=== PATIENT | female | born 1955 | race Caucasian/White ===

== ENCOUNTER 2017-12-23 11:22 | Emergency (ER) | payer MEDICARE, OTHER ==
[~2017-12-23] VITALS: Ht 162.6 cm; Wt 126.1 kg
--- OUTSIDE RECORDS SUMMARY | 2017-12-23 11:27 | XMS REPORT ---
Author Author TARA VAZQUEZ [facility] [place] eClinicalWorks Address Unknown Phone Unavailable Care Team Providers Care Fruit Loader Machine Operator Name Role Phone TARA VAZQUEZ CP Unavailable Allergies, Adverse Reactions, Alerts Substance Reaction Event Type N.K.D.A. Info Not Available Non Drug Allergy Problems Problem Type Condition Code Onset Dates Condition Status Problem Pedal edema R60.0 Active Problem Right leg pain M79.604 Active Problem HTN (hypertension) I10 Active Assessment Right leg pain M79.604 Active Assessment HTN (hypertension) I10 Active Assessment Pedal edema R60.0 Active Medications Medication Code System Code Instructions Start Date End Date Status Dosage Potassium Chloride ER [facility] [address]-08 10 MEQ Orally Once a day Sep 18, 2015 Oct 18, 2015 1 tablet Norvasc [facility] [address]-25 10 MG Orally Once a day Sep 18, 2015 1 tablet Walker NDC 0 1 rolling walker daily Aug 23, 2015 as directed Lisinopril-Hydrochlorothiazide [facility] [address]-96 20-25 MG Orally Once a day Aug 23, 2015 1 tablet Lasix [facility] [address]-86 20 MG Orally Once a day prn swelling Sep 18, 2015 1 tablet Cane NDC 0 1 cane use daily Aug 23, 2015 as directed Procedures Procedure Coding System Code Date COMPREHEN METABOLIC PANEL CPT-4 30151 Sep 18, 2015 URINALYSIS, AUTO, W/O SCOPE CPT-4 07102 Sep 18, 2015 COMPLETE CBC W/AUTO DIFF WBC CPT-4 97272 Sep 18, 2015 Office Visit, Est Pt., Level 4 CPT-4 76935 Sep 18, 2015 CHEST X-RAY CPT-4 60185 Sep 18, 2015 VENIPUNCT, ROUTINE* CPT-4 99934 Sep 18, 2015 Vital Signs Date/Time: Sep 18, 2015 Temperature 98.0 F Weight 289 lbs Height 64.0 in BMI 49.60 Index Blood Pressure Diastolic 88 mmHg Blood Pressure Systolic 174 mmHg Cardiac Monitoring Heart Rate 80 bpm Results Name Result Date Reference Range Unit Abnormality Flag ROUTINE VENIPUNCTURE CBC Summary Purpose eClinicalWorks Submission
--- OUTSIDE RECORDS SUMMARY | 2017-12-23 11:27 | XMS REPORT ---
Author Author TARA VAZQUEZ Organization [facility] Address [address] [place] [address] Care Team Providers Care Relay Shop Supervisor Name Role Phone TARA VAZQUEZ Unavailable PROBLEMS Type Condition ICD9-CM Code [id number] Code Onset Dates Condition Status SNOMED Code Problem Obese E66.9 Active 393339398 Problem HTN (hypertension) I10 Active 65864741 Problem Pedal edema R60.0 Active 925810371 Problem Right leg pain M79.604 Active 624091732 ALLERGIES No Information SOCIAL HISTORY Never Assessed PLAN OF CARE VITAL SIGNS MEDICATIONS Medication Instructions Dosage Frequency Start Date End Date Duration Status Lisinopril-Hydrochlorothiazide 20-12.5 MG Orally Once a day 1 tablet 24h Aug, Active Norvasc 10 mg Orally Once a day 1 tablet 24h Sep, Active Potassium Chloride Angela ER 10 MEQ Orally Once a day TAKE ONE TABLET 24h Active Lasix 20 mg Orally Once a day prn swelling 1 tablet Sep, 30 days Active RESULTS No Results PROCEDURES No Known procedures IMMUNIZATIONS No Known Immunizations MEDICAL (GENERAL) HISTORY Type Description Date Medical History hypertension Medical History joint pain Surgical History tonsillectomy and adenoidectomy 1959' Surgical History section 1987 Hospitalization History surgical reason's
--- OUTSIDE RECORDS SUMMARY | 2017-12-23 11:27 | XMS REPORT ---
Author Author TARA VAZQUEZ Organization [facility] Address [address] [place] [address] Care Team Providers Care Industrial Technician Name Role Phone TARA VAZQUEZ Unavailable PROBLEMS Type Condition ICD9-CM Code [id number] Code Onset Dates Condition Status SNOMED Code Problem Obese E66.9 Active 699433630 Problem HTN (hypertension) I10 Active 77220834 Problem Pedal edema R60.0 Active 874597191 Problem Right leg pain M79.604 Active 436419837 ALLERGIES No Information SOCIAL HISTORY Never Assessed PLAN OF CARE Activity Details Follow Up 3 Months Reason:htn leg pain VITAL SIGNS Height 64.0 in 2017-04-06 Temperature 87.9 degrees Fahrenheit 2017-04-06 Heart Rate 72 bpm 2017-04-06 Respiratory Rate 20 2017-04-06 Blood pressure systolic 148 mmHg 2017-04-06 Blood pressure diastolic 70 mmHg 2017-04-06 MEDICATIONS Medication Instructions Dosage Frequency Start Date End Date Duration Status Norvasc 10 mg Orally Once a day 1 tablet 24h Sep, Active Potassium Chloride Angela ER 10 MEQ Orally Once a day TAKE ONE TABLET 24h Active Naprosyn 500 MG Orally every 12 hrs 1 tablet as needed 12h Oct, Active Lasix 20 mg Orally Once a day prn swelling 1 tablet Sep, 30 days Active Lisinopril-Hydrochlorothiazide 20-12.5 MG Orally Once a day 1 tablet 24h Aug, 30 days Active RESULTS No Results PROCEDURES No Known procedures IMMUNIZATIONS No Known Immunizations MEDICAL (GENERAL) HISTORY Type Description Date Medical History hypertension Medical History joint pain Surgical History tonsillectomy and adenoidectomy 1959's Surgical History section 1988 Hospitalization History surgical reason's
--- OUTSIDE RECORDS SUMMARY | 2017-12-23 11:27 | XMS REPORT ---
Author Author TARA VAZQUEZ [facility] eClinicalWorks Address Unknown Phone Unavailable Care Team Providers Care Internal Carver Name Role Phone TARA VAZQUEZ CP Unavailable [...] Instructions Start Date End Date Status Dosage Naprosyn [facility] [address]-33 500 MG Orally every 12 hrs Oct 16, 2015 1 tablet as needed Cane NDC 0 1 cane use daily Aug 23, 2015 as directed Lasix [facility] [address]-13 20 MG Orally Once a day prn swelling Sep 18, 2015 1 tablet Lisinopril-Hydrochlorothiazide [facility] [address]-78 20-25 MG Orally Once a day Aug 23, 2015 1 tablet Potassium Chloride ER [facility] [address]-15 10 MEQ Orally Once a day Sep 18, 2015 Oct 18, 2015 1 tablet Walker NDC 0 1 rolling walker daily Aug 23, 2015 as directed Norvasc [facility] [address]-02 10 MG Orally Once a day Sep 18, 2015 1 tablet Procedures Procedure Coding System Code Date Office Visit, Est Pt., Level 4 CPT-4 06316 Oct 16, 2015 Vital Signs Date/Time: Oct 16, 2015 Blood Pressure Systolic 138 mmHg Weight 287.5 lbs Height 64.0 in BMI 49.34 Index Blood Pressure Diastolic 74 mmHg Results No Known Results Summary Purpose eClinicalWorks Submission
--- OUTSIDE RECORDS SUMMARY | 2017-12-23 11:27 | XMS REPORT ---
Author Author TARA VAZQUEZ [facility] eClinicalWorks Address Unknown Phone Unavailable Care Team Providers Care Restaurant Kitchen Manager Name Role Phone TARA VAZQUEZ CP Unavailable Allergies, Adverse Reactions, Alerts Substance Reaction Event Type N.K.D.A. Info Not Available Non Drug Allergy Problems Problem Type Condition Code Onset Dates Condition Status Problem Pedal edema R60.0 Active Problem Right leg pain M79.604 Active Problem HTN (hypertension) I10 Active Assessment Pedal edema R60.0 Active Assessment Right leg pain M79.604 Active Assessment HTN (hypertension) I10 Active Medications Medication Code System Code Instructions Start Date End Date Status Dosage Walker NDC 0 1 rolling walker daily Aug 23, 2015 as directed Cane NDC 0 1 cane use daily Aug 23, 2015 as directed Triamterene-HCTZ [facility] [address]-20 37.5-25 MG Orally Once a day May 10, 2015 1 tablet in the morning Lisinopril-Hydrochlorothiazide [facility] [address]-72 20-25 MG Orally Once a day Aug 23, 2015 1 tablet Procedures Procedure Coding System Code Date Office Visit, Est Pt., Level 4 CPT-4 53347 Aug 23, 2015 Vital Signs Date/Time: Aug 23, 2015 Temperature 97.9 F Weight 288.4 lbs Height 64.0 in BMI 49.50 Index Blood Pressure Diastolic 98 mmHg Blood Pressure Systolic 180 mmHg Cardiac Monitoring Heart Rate 84 bpm Results No Known Results Summary Purpose eClinicalWorks Submission
--- OUTSIDE RECORDS SUMMARY | 2017-12-23 11:27 | XMS REPORT ---
Author Author TARA VAZQUEZ Organization [facility] Address [address] [place] [address] Care Team Providers Care Care Aide Name Role Phone TARA VAZQUEZ Unavailable PROBLEMS Type Condition ICD9-CM Code [id number] Code Onset Dates Condition Status SNOMED Code Problem Obese E66.9 Active 782565224 Problem HTN (hypertension) I10 Active 55939298 Problem Pedal edema R60.0 Active 289111014 Problem Right leg pain M79.604 Active 415751889 ALLERGIES Unknown Allergies SOCIAL HISTORY No smoking Hx information available PLAN OF CARE VITAL SIGNS MEDICATIONS Medication Instructions Dosage Frequency Start Date End Date Duration Status Potassium Chloride Angela ER 10 MEQ Orally Once a day TAKE ONE TABLET 24h 30 Active Lisinopril-Hydrochlorothiazide 20-25 MG Orally Once a day 1 tablet 24h Aug, 30 days Active Lasix 20 mg Orally Once a day prn swelling 1 tablet Sep, 30 days Active RESULTS No Results PROCEDURES No Known procedures IMMUNIZATIONS No Known Immunizations
--- OUTSIDE RECORDS SUMMARY | 2017-12-23 11:27 | XMS REPORT ---
Author Author TARA VAZQUEZ [facility] eClinicalWorks Address Unknown Phone Unavailable Care Team Providers Care Interventional Radiology Rn Name Role Phone TARA VAZQUEZ CP Unavailable Allergies, Adverse Reactions, Alerts Substance Reaction Event Type N.K.D.A. Info Not Available Non Drug Allergy Problems Problem Type Condition Code Onset Dates Condition Status Assessment Obese E66.9 Active Problem HTN (hypertension) I10 Active Problem Pedal edema R60.0 Active Problem Obese E66.9 Active Assessment Pedal edema R60.0 Active Assessment Right leg pain M79.604 Active Problem Right leg pain M79.604 Active Assessment HTN (hypertension) I10 Active Medications Medication Code System Code Instructions Start Date End Date Status Dosage Walker NDC 0 1 rolling walker daily Aug 23, 2015 as directed Potassium Chloride ER [facility] [address]-97 10 MEQ Orally Once a day January 22, 2016 Nov 06, 2016 1 tablet with food Norvasc [facility] [address]-35 10 mg Orally Once a day Sep 18, 2015 1 tablet Naprosyn [facility] [address]-39 500 MG Orally every 12 hrs Oct 16, 2015 1 tablet as needed Lasix [facility] [address]-28 20 mg Orally Once a day prn swelling Sep 18, 2015 1 tablet Cane ND 0 1 cane use daily Aug 23, 2015 as directed Lisinopril-Hydrochlorothiazide [facility] [address]-44 20-25 MG Orally Once a day Aug 23, 2015 1 tablet Procedures Procedure Coding System Code Date Office Visit, Est Pt., Level 4 CPT-4 70610 Aug 08, 2016 Vital Signs Date/Time: Aug 08, 2016 Cardiac Monitoring Heart Rate 72 bpm Weight 301 lbs Height 64.0 in BMI 51.66 Index Blood Pressure Diastolic 78 mmHg Blood Pressure Systolic 124 mmHg Results No Known Results Summary Purpose eClinicalWorks Submission
--- OUTSIDE RECORDS SUMMARY | 2017-12-23 11:28 | XMS REPORT ---
Author Author TARA VAZQUEZ Organization [facility] Address [address] [place] [address] Care Team Providers Care Factory Assembler Name Role Phone DARLING VAZQUEZE Unavailable PROBLEMS Type Condition ICD9-CM Code EGL53-FL Code Onset Dates Condition Status SNOMED Code Problem Obese E66.9 Active 969048212 Problem HTN (hypertension) I10 Active 43499353 Problem Pedal edema R60.0 Active 883247031 Problem Right leg pain M79.604 Active 724932153 ALLERGIES Substance Reaction Event Type Date Status N.K.D.A. Unknown Non Drug Allergy Nov, Unknown SOCIAL HISTORY No smoking Hx information available PLAN OF CARE Activity Details Follow Up 3 Months Reason:htn VITAL SIGNS Height 64.0 in 2016-11-25 Weight 300 lbs 2016-11-25 Temperature 97.8 degrees Fahrenheit 2016-11-25 Heart Rate 70 bpm 2016-11-25 Respiratory Rate 24 2016-11-25 BMI 51.49 kg/m2 2016-11-25 Blood pressure systolic 132 mmHg 2016-11-25 Blood pressure diastolic 62 mmHg 2016-11-25 MEDICATIONS Medication Instructions Dosage Frequency Start Date End Date Duration Status Norvasc 10 mg Orally Once a day 1 tablet 24h Sep, Active Hydrochlorothiazide 12.5 MG Orally Once a day 1 tablet 24h 24 Nov, 2016 Active Cane 1 cane use daily as directed Aug, Active Walker 1 rolling walker daily as directed 24h Aug, Active Lisinopril-Hydrochlorothiazide 20-12.5 MG Orally Once a day 1 tablet 24h Aug, Active Naprosyn 500 MG Orally every 12 hrs 1 tablet as needed 12h Oct, Active Lasix 20 mg Orally Once a day prn swelling 1 tablet Sep, 30 days Active Potassium Chloride Angela ER 10 MEQ Orally Once a day TAKE ONE TABLET 24h Active RESULTS Name Result Date Reference Range CBC 2016-11-25 WBC 7.8 3.4-10.8 RBC 3.76 3.77-5.28 Hemoglobin 9.8 11.1-15.9 Hematocrit 31.1 34.0-46.6 MCV 83 79-97 MCH 26.1 26.6-33.0 MCHC 31.5 31.5-35.7 RDW 14.2 12.3-15.4 Platelets 354 150-379 Neutrophils 49 Lymphs 21 Monocytes 7 Eos 22 Basos 1 Immature Cells Neutrophils (Absolute) 3.9 1.4-7.0 Lymphs (Absolute) 1.6 0.7-3.1 Monocytes(Absolute) 0.6 0.1-0.9 Eos (Absolute) 1.7 0.0-0.4 Baso (Absolute) 0.0 0.0-0.2 Immature Granulocytes 0 Immature Grans (Abs) 0.0 0.0-0.1 Hematology Comments: Note: LIPID PANEL 2016-11-25 Cholesterol, Total 171 100-199 Triglycerides 103 0-149 HDL Cholesterol 62 >39 VLDL Cholesterol Joshua 21 5-40 LDL Cholesterol Calc 88 0-99 CMP 2016-11-25 Glucose, Serum 79 65-99 BUN 30 8-27 Creatinine, Serum 1.53 0.57-1.00 eGFR If NonAfricn Am 36 >59 eGFR If Africn Am 42 >59 BUN/Creatinine Ratio 20 11-26 Sodium, Serum 140 134-144 Potassium, Serum 4.5 3.5-5.2 Chloride, Serum 101 96-106 Carbon Dioxide, Total 20 18-29 Calcium, Serum 9.2 8.7-10.3 Protein, Total, Serum 7.0 6.0-8.5 Albumin, Serum 4.1 3.6-4.8 Globulin, Total 2.9 1.5-4.5 A/G Ratio 1.4 1.1-2.5 Bilirubin, Total 0.3 0.0-1.2 Alkaline Phosphatase, S 87 39-117 AST (SGOT) 18 0-40 ALT (SGPT) 12 0-32 PROCEDURES Procedure Date Ordered Related Diagnosis Body Site COMPLETE CBC W/AUTO DIFF WBC Nov 25, 2016 COMPREHEN METABOLIC PANEL Nov 25, 2016 VENIPUNCT, ROUTINE* Nov 25, 2016 LIPID PANEL Nov 25, 2016 Office Visit, Est Pt., Level 4 Nov 25, 2016 IMMUNIZATIONS No Known Immunizations
[2017-12-23] MEDS ORDERED: AMLO10TA2 (11:54)
[2017-12-23] MEDS ORDERED: NAPR-915 (11:54)
[2017-12-23] MEDS ORDERED: FURO20TA4 (11:54)
[2017-12-23] MEDS ORDERED: LISI1TAB8 (11:54)
[2017-12-23] MEDS ORDERED: POTA10TA36 (11:54)
--- NOTE | 2017-12-23 12:11 | ED Lower Extremity ---
General Chief Complaint: Lower Extremity Stated Complaint: LEFT ANKLE INJ/FALL Nursing Triage Note: TO ROOM PER W/C REPORTS WAS SITTING ON TOLIET WENT TO STAND UP AND TWISTED ANKLE. Nursing Sepsis Screen: No Definite Risk Source: patient Exam Limitations: no limitations History of Present Illness Date Seen by Provider: Dec 23, 2017 Time Seen by Provider: 12:09 Initial Comments To ER with left ankle pain and swelling. This occurred and she was standing up from the toilet he felt a tearing or popping sensation in the left ankle. Significant pain since then. Onset: just prior to arrival Severity: moderate Pain/Injury Location: left ankle Method of Injury: twisted Modifying Factors: Improves With Movement Allergies and Home Medications Allergies Coded Allergies: No Known Drug Allergies (Unverified , 12/23/17) Home Medications Amlodipine Besylate 10 Mg Tablet, (Reported) Furosemide 20 Mg Tablet, (Reported) Hydrocodone/Acetaminophen 1 Each Tablet, 1 EACH PO Q4H PRN for PAIN-MODERATE TO SEVERE, #30 Prescribed by: KARINA HIGHTOWER on 12/23/17 1246 Lisinopril/Hydrochlorothiazide 1 Each Tablet, (Reported) Naproxen 500 Mg Tablet, (Reported) Potassium Chloride 10 Meq Tab.er.prt, (Reported) Constitutional: see HPI EENTM: see HPI Respiratory: no symptoms reported Cardiovascular: no symptoms reported Genitourinary: no symptoms reported Musculoskeletal: see HPI Skin: no symptoms reported Psychiatric/Neurological: No Symptoms Reported Past Fubihxz-Cryeaj-Oflsvi Hx Patient Social History Alcohol Use: Occasionally Uses Recreational Drug Use: No Smoking Status: Never a Smoker Recent Foreign Travel: No Contact w/Someone Who Travel: Yes Recent Infectious Disease Expo: No Surgeries History of Surgeries: Yes Surgeries: Section Cardiovascular History of Cardiac Disorders: Yes Cardiac Disorders: Hypertension Neurological History of Neurological Disord: No Genitourinary History of Genitourinary Disor: No Integumentary History of Skin or Integumenta: No Physical Exam Vital Signs Vital Signs - First Documented 12/23/17 11:27 Temp 98.2 Pulse 103 Resp 18 B/P (MAP) 103/73 (83) O2 Delivery Room Air Capillary Refill : Less Than 3 Seconds General Appearance: WD/WN, no apparent distress HEENT: PERRL/EOMI, normal ENT inspection Neck: non-tender, full range of motion Respiratory: no respiratory distress, no accessory muscle use Hips: bilateral hip non-tender, bilateral hip normal inspection, bilateral hip normal range of motion Legs: bilateral leg non-tender, bilateral leg normal inspection, bilateral leg normal range of motion Knees: bilateral knee non-tender, bilateral knee normal inspection, bilateral knee normal range of motion Ankles: left ankle pain, left ankle soft tissue tenderness, left ankle swelling , left ankle other (swelling over the lateral malleolus. I am unable to palpate a dorsalis pedis pulse in either foot. However, I'm able to Doppler blood flow over the dorsalis pedis artery bilaterally and actually is a bit stronger on the left.) Neurologic/Psychiatric: alert, normal mood/affect, oriented x 3 Skin: normal color, warm/dry Progress/Results/Core Measures Results/Orders My Orders Orders - KARINA HIGHTOWER APRN Tibia/Fibula, Left, 2 Views (12/23/17 12:08) Ankle, Left, 3 Views (12/23/17 12:08) Hydrocodone/Apap 5/325 Tablet (Lortab 5 (12/23/17 12:15) Ondansetron Oral Dissolve Tab (Zofran (12/23/17 12:15) Medications Given in ED Current Medications Medications Dose Ordered Sig/Serge Route Start Time Stop Time Status Last Admin Dose Admin Acetaminophen/ Hydrocodone Bitart 1 tab ONCE ONCE PO 12/23/17 12:15 12/23/17 12:16 DC 12/23/17 12:14 1 TAB Ondansetron HCl 4 mg ONCE ONCE PO 12/23/17 12:15 12/23/17 12:16 DC 12/23/17 12:14 4 MG Vital Signs/I&O Vital Sign - Last 12Hours 12/23/17 11:27 Temp 98.2 Pulse 103 Resp 18 B/P (MAP) 103/73 (83) O2 Delivery Room Air Blood Pressure Mean: 83 Diagnostic Imaging Diagonstic Imaging: Xray Comments NAME: GENEVIEVE STRATTON MED REC#: [id number] PT STATUS: REG ER : 1955 PHYSICIAN: KARINA HIGHTOWER APRN ADMIT DATE: 12/23/17/ER Draft Date of Exam:12/23/17 ANKLE, LEFT, 3 VIEWS PATIENT HISTORY: Fall with injury to the left ankle. TECHNIQUE: 3 views of the left ankle COMPARISON: None FINDINGS: There is mild diffuse osteopenia. There is a nondisplaced oblique Alvarez type B fracture of the lateral malleolus. Alignment of the ankle mortise appears normal. There is moderate to marked soft tissue edema at the lateral aspect of the ankle. A small left ankle joint effusion is seen. There is a large plantar calcaneal enthesophyte. IMPRESSION: 1. Nondisplaced Alvarez type B fracture of the left ankle lateral malleolus. Dictated on workstation # [id number] Dict: 12/23/17 1237 Trans: 12/23/17 1247 [facility] [id number] Interpreted by: ADELAIDA WINSTON MD Electronically signed by: NAME: GENEVIEVE STRATTON [facility] REC#: [id number] PT STATUS: REG ER : 1955 PHYSICIAN: KARINA HIGHTOWER APRN ADMIT DATE: 12/23/17/ER Draft Date of Exam:12/23/17 TIBIA/FIBULA, LEFT, 2 VIEWS PATIENT HISTORY: Fall with numbness in legs, injury to the left lower leg and ankle. TECHNIQUE: Frontal and lateral views of the left tibia/fibula. COMPARISON: None. FINDINGS: No acute fracture or dislocation is seen in the left tibia. The left fibular fractures are better seen on the concurrent ankle radiograph. Alignment appears normal. There are advanced degenerative changes in the medial compartment of the left knee with moderate degenerative changes in the lateral patella femoral compartments. There is mild diffuse soft tissue edema throughout the left lower leg. Moderate soft tissue edema seen at the lateral aspect of the ankle. There are scattered soft tissue calcifications which have the appearance of phleboliths. IMPRESSION: 1. No acute fracture seen in the left tibia. The left distal fibular fracture is better seen on the concurrent ankle radiograph. 2. 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 Dictated on workstation # [id number] Dict: 12/23/17 1235 Trans: 12/23/17 1246 [facility] [id number] Interpreted by: ADELAIDA WINSTON MD Electronically signed by: Departure Communication (Admissions) Progress Notes Patient has seen Dr. Diaz in the past and will call him for follow-up. Impression Impression: Primary Impression: Ankle fracture, left Disposition: 01 HOME, SELF-CARE Condition: Improved Departure-Patient Inst. Decision time for Depature: 12:45 Referrals: JENNY GRACIA MD [facility] (PCP/Family) Primary Care Physician BRIDGET LOVE,DAVEY DOMINGO,LISSETTE ROSEN,ZIGGY DIAZ,DINESH SHARIF,CELESTE Suazo MD Patient Instructions: Ankle Fracture (DC) Add. Discharge Instructions: 1. Wear the splint at all times until you follow up with orthopedics. This includes when you shower and this needs to be kept dry so either hold the leg out of the bathtub or put trash bag over it so the shower does not get wet. Return to the emergency room for inability to feeling her toes, severe intolerable pain or a cold foot. Take the pain medication as directed and elevate her foot as much as possible for the next 2-3 days. Call orthopedic surgeon of your choosing today to make an appointment to be seen for follow-up. All discharge instructions reviewed with patient and/or family. Voiced understanding. Scripts Hydrocodone/Acetaminophen ([place] 5-325 Tablet) 1 Each Tablet 1 EACH PO Q4H Y for PAIN-MODERATE TO SEVERE, #30 TAB Prov: KARINA HIGHTOWER APRN 12/23/17 Copy Copies To 1: DINESH DIAZ PETER J APRN Dec 23, 2017 12:11
[2017-12-23] MEDS ORDERED: HYDROcodone/APAP 5 MG/325 MG (LORTAB) TAB PO ONE (12:15)
[2017-12-23] MEDS ORDERED: ONDANSETRON 4 MG (ZOFRAN) ORAL DISSOLVE TAB PO ONE (12:15)
[2017-12-23] MEDS ORDERED: HYDR-757 PO (12:46)
--- NOTE | 2017-12-23 12:47 | Diagnostic Imaging Report ---
PATIENT HISTORY: Fall with numbness in legs, injury to the left lower leg and ankle. TECHNIQUE: Frontal and lateral views of the left tibia/fibula. COMPARISON: None. FINDINGS: No acute fracture or dislocation is seen in the left tibia. The left fibular fractures are better seen on the concurrent ankle radiograph. Alignment appears normal. There are advanced degenerative changes in the medial compartment of the left knee with moderate degenerative changes in the lateral patella femoral compartments. There is mild diffuse soft tissue edema throughout the left lower leg. Moderate soft tissue edema seen at the lateral aspect of the ankle. There are scattered soft tissue calcifications which have the appearance of phleboliths. IMPRESSION: 1. No acute fracture seen in the left tibia. The left distal fibular fracture is better seen on the concurrent ankle radiograph. 2. 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 Dictated by: Dictated on workstation # [id number]
--- NOTE | 2017-12-23 12:48 | Diagnostic Imaging Report ---
PATIENT HISTORY: Fall with injury to the left ankle. TECHNIQUE: 3 views of the left ankle COMPARISON: None FINDINGS: There is mild diffuse osteopenia. There is a nondisplaced oblique Alvarez type B fracture of the lateral malleolus. Alignment of the ankle mortise appears normal. There is moderate to marked soft tissue edema at the lateral aspect of the ankle. A small left ankle joint effusion is seen. There is a large plantar calcaneal enthesophyte. IMPRESSION: 1. Nondisplaced Alvarez type B fracture of the left ankle lateral malleolus. Dictated by: Dictated on workstation # [id number]
[2017-12-23 13:23] VITALS: BP 103/73
== END 2017-12-23 13:21 | disposition home or self-care (01) ==
LOC: EDUNIT# 11:22 → ER 11:25
DX: S82.832A Other fracture of upper and lower end of left fibula, initial encounter for closed fracture (principal); I10 Essential (primary) hypertension; Z87.59 Personal history of other complications of pregnancy, childbirth and the puerperium; X50.0XXA Overexertion from strenuous movement or load, initial encounter; Y92.002 Bathroom of unspecified non-institutional (private) residence as the place of occurrence of the external cause
CPT/HCPCS: 29515; 73590; 73610

== ENCOUNTER 2021-07-18 18:37 | Inpatient (IN) | payer MEDICARE ==
[~2021-07-18] VITALS: Ht 162.6 cm; Wt 130.6 kg
[~2021-07-18 18:37] MED LIST: AMLO-251 PO; FURO20TA4 PO; HYDR-4226 PO; LISI1TAB46; NAPR-915; POTA10TA36 PO
[2021-07-18 19:29] LABS: BASOPHILS % (AUTO) 0 % (0-10); EOSINOPHILS # (AUTO) 0.2 10^3/uL (0.0-0.3); EOSINOPHILS % (AUTO) 2 % (0-10); HEMATOCRIT 38 % (35-52); HEMOGLOBIN 11.9 g/dL (11.5-16.0); LYMPHOCYTES # (AUTO) 0.7 10^3/uL (1.0-4.0); LYMPHOCYTES % (AUTO) 9 % (12-44); MEAN CORPUSCULAR HEMOGLOBIN 31 pg (25-34); MEAN CORPUSCULAR HGB CONC 32 g/dL (32-36); MEAN CORPUSCULAR VOLUME 99 fL (80-99); MEAN PLATELET VOLUME 11.7 fL (9.0-12.2); MONOCYTES # (AUTO) 0.5 10^3/uL (0.0-1.0); MONOCYTES % (AUTO) 7 % (0-12); NEUTROPHILS % (AUTO) 81 % (42-75); PLATELET COUNT 243 10^3/uL (130-400); WHITE BLOOD COUNT 7.3 10^3/uL (4.3-11.0)
--- NOTE | 2021-07-18 19:43 | ED Respiratory ---
General Chief Complaint: Respiratory Problems Stated Complaint: LOW BLOOD PRESSURE, SOB, KIDNEY FAILURE Nursing Triage Note: PT TO RM 8 PER WC W C/O SOB. PT REPORTS AT 1600 TODAY SHE WAS IN THE BATHTUB AND COULDNT GET UP D/T SOB. PT WAS 287LBS 2 WEEKS AGO AND SAYS SHE WEIGHS 305LBS TODAY. PITTING EDEMA NOTED DURING TRIAGE. PT DENIES PAIN AT THIS TIME. Source: patient Exam Limitations: no limitations History of Present Illness Date Seen by Provider: Jul 18, 2021 Time Seen by Provider: 19:15 Initial Comments Patient to ER with her son and chief complaint of 2 weeks progressively worsening shortness of air chest pain on exertion and swelling in her feet. She is gained 16 in the past 2 weeks. She takes 20 mg of Lasix p.o. daily and saw her provider earlier who did a BNP which was only 600. They increased her to 40 mg daily and later her provider put her back down to 20. She says her symptoms have not improved. She denies a history of atrial fibrillation. She is on lisinopril, amlodipine, Lasix and potassium. She is not on any beta-blockers. She does not have a rental agent. She does have a history of kidney failure. She typically ambulates by walker. No history of coronary artery disease. No hyperlipidemia, no smoking, does have hypertension. No history of diabetes. Allergies and Home Medications Allergies Coded Allergies: No Known Drug Allergies (Unverified , 12/23/17) Patient Home Medication List Home Medication List Reviewed: Yes Amlodipine Besylate (Amlodipine Besylate) 10 Mg Tablet, (Reported) Entered as Reported by: CASSY VELA on 12/23/17 1154 Furosemide (Furosemide) 20 Mg Tablet, (Reported) Entered as Reported by: CASSY VELA on 12/23/17 1154 Hydrocodone/Acetaminophen (Hydrocodone/Acetaminophen 5 MG/325 MG TAB) 1 Each Tablet, 1 EACH PO Q4H PRN for PAIN-MODERATE TO SEVERE Prescribed by: KARINA HIGHTOWER on 12/23/17 1246 Lisinopril/Hydrochlorothiazide (Lisinopril-Hctz 20-12.5 mg Tab) 1 Each Tablet, (Reported) Entered as Reported by: CASSY VELA on 12/23/17 1154 Naproxen (Naproxen) 500 Mg Tablet, (Reported) Entered as Reported by: CASSY VELA on 12/23/17 1154 Potassium Chloride (Potassium Chloride) 10 Meq Tab.er.prt, (Reported) Entered as Reported by: CASSY VELA on 12/23/17 1154 Review of Systems Review of Systems Constitutional: No chills, No diaphoresis EENTM: No no symptoms reported, No ear discharge, No ear pain Respiratory: No cough; short of breath Cardiovascular: see HPI, chest pain (On exertion); No palpitations Gastrointestinal: No abdominal pain, No constipation Genitourinary: No dysuria, No pain : No Musculoskeletal: No back pain, No joint pain Skin: No pruritus, No rash Psychiatric/Neurological: Denies Headache, Denies Numbness, Denies Paresthesia Hematologic/Lymphatic: Denies Anemia, Denies Blood Clots All Other Systems Reviewed Negative Unless Noted: Yes Past Tjgxkfl-Drwcbi-Uniycp Hx Patient Social History Tobacco Use?: No Smoking Status: Never a Smoker Use of E-Cig and/or Vaping dev: No Substance use?: No Alcohol Use?: No Immunizations Up To Date First/Initial COVID19 Vaccinat: NONE Second COVID19 Vaccination Cuate: NONE COVID19 Vaccine 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 oz. 126.629773bh; 52.00 BMI Method:Stated General Appearance: moderate distress, obese Eyes: Bilateral Eye Normal Inspection, Bilateral Eye PERRL, Bilateral Eye EOMI HEENT: PERRL/EOMI, pharynx normal Neck: full range of motion, supple, normal inspection Respiratory: lungs clear, normal breath sounds, no respiratory distress, no accessory muscle use Cardiovascular: normal peripheral pulses, tachycardia, irregularly irregular Gastrointestinal: normal bowel sounds, non tender, soft, no organomegaly Extremities: normal range of motion, non-tender, normal capillary refill Neurologic/Psychiatric: alert, normal mood/affect, oriented x 3 Skin: normal color, warm/dry, other (Weeping bipedal edema) Progress/Results/Core Measures Suspected Sepsis SIRS Temperature: Pulse: 114 Respiratory Rate: 26 Laboratory Tests 07/18/21 19:00: White Blood Count 7.3 Blood Pressure 109 /79 Mean: 89 Laboratory Tests 07/18/21 19:00: Creatinine 2.29H, Platelet Count 243, Total Bilirubin 0.9 Results/Orders Lab Results Laboratory Tests Test 07/18/21 19:00 Range/Units White Blood Count 7.3 4.3-11.0 10^3/uL Red Blood Count 3.82 3.80-5.11 10^6/uL Hemoglobin 11.9 11.5-16.0 g/dL Hematocrit 38 35-52 % Mean Corpuscular Volume 99 80-99 fL Mean Corpuscular Hemoglobin 31 25-34 pg Mean Corpuscular Hemoglobin Concent 32 32-36 g/dL Red Cell Distribution Width 13.7 10.0-14.5 % Platelet Count 243 130-400 10^3/uL Mean Platelet Volume 11.7 9.0-12.2 fL Immature Granulocyte % (Auto) 0 % Neutrophils (%) (Auto) 81 H 42-75 % Lymphocytes (%) (Auto) 9 L 12-44 % Monocytes (%) (Auto) 7 0-12 % Eosinophils (%) (Auto) 2 0-10 % Basophils (%) (Auto) 0 0-10 % Neutrophils # (Auto) 6.0 1.8-7.8 10^3/uL Lymphocytes # (Auto) 0.7 L 1.0-4.0 10^3/uL Monocytes # (Auto) 0.5 0.0-1.0 10^3/uL Eosinophils # (Auto) 0.2 0.0-0.3 10^3/uL Basophils # (Auto) 0.0 0.0-0.1 10^3/uL Immature Granulocyte # (Auto) 0.0 0.0-0.1 10^3/uL Sodium Level 138 135-145 MMOL/L Potassium Level 5.0 3.6-5.0 MMOL/L Chloride Level 109 H 98-107 MMOL/L Carbon Dioxide Level 16 L 21-32 MMOL/L Anion Gap 13 5-14 MMOL/L Blood Urea Nitrogen 42 H 7-18 MG/DL Creatinine 2.29 H 0.60-1.30 MG/DL Estimat Glomerular Filtration Rate 21 BUN/Creatinine Ratio 18 Glucose Level 114 H 70-105 MG/DL Calcium Level 9.4 8.5-10.1 MG/DL Corrected Calcium 9.5 8.5-10.1 MG/DL Total Bilirubin 0.9 0.1-1.0 MG/DL Aspartate Amino Transf (AST/SGOT) 19 5-34 U/L Alanine Aminotransferase (ALT/SGPT) 18 0-55 U/L Alkaline Phosphatase 90 40-136 U/L Troponin I < 0.028 <0.028 NG/ML C-Reactive Protein High Sensitivity 0.25 0.00-0.50 MG/DL B-Type Natriuretic Peptide 1105.7 H <100.0 PG/ML Total Protein 6.3 L 6.4-8.2 GM/DL Albumin 3.9 3.2-4.5 GM/DL My Orders Orders - CARY BURRIS Cbc With Automated Diff (07/18/21 19:22) Comprehensive Metabolic Panel (07/18/21 19:22) Hs C Reactive Protein (07/18/21 19:22) BNP (07/18/21 19:22) Troponin I (07/18/21 19:22) Continuous Ekg Monitoring (07/18/21 19:22) Ekg Tracing (07/18/21 19:22) Chest 1 View, Ap/Pa Only (07/18/21 19:22) Diltiazem Drip Pre-Mix (Cardizem Drip Pr (07/18/21 20:00) Furosemide Injection (Lasix Injection) (07/18/21 20:15) Aspirin Chewable Tablet (Baby Aspirin Ch (07/18/21 20:15) Furosemide Injection (Lasix Injection) (07/18/21 20:15) Vital Signs/I&O 07/18/21 07/18/21 19:14 19:14 Temp 36.9 Pulse 114 Resp 26 B/P (MAP) 109/79 (89) Pulse Ox 96 O2 Delivery Room Air Room Air Capillary Refill : Less Than 3 Seconds Blood Pressure Mean: 89 Progress Note : Time: 19:54 Progress Note Patient has atrial fibrillation with rapid response. She appears to be dry with no hepatojugular reflux on exam, no significant JVD although she does have increased edema and weight gain. CHF exacerbation could be part of her problems. We will start her on Cardizem drip at 5 mg/h and put her upstairs in the unit overnight. Because of her soft blood pressure will not give a bolus. ECG Initial ECG Impression Date: Jul 18, 2021 Initial ECG Impression Time: 19:26 Initial ECG Rate: 129 Initial ECG Rhythm: A Fib/Flutter Initial ECG Intervals: QT (581) Initial ECG Impression: Atrial Fibrillation w/RVR Initial ECG Comparisson: No Previous ECG Available Comment Atrial fibrillation with rapid ventricular response. Diagnostic Imaging Diagonstic Imaging: Xray Plain Films/CT/US/NM/MRI: chest Comments NAME: GENEVIEVE STRATTON [facility] REC#: [id number] PT STATUS: REG ER : 1955 PHYSICIAN: CARY BURRIS MD ADMIT DATE: 07/18/21/ER Draft Date of Exam:07/18/21 CHEST 1 VIEW, AP/PA ONLY HISTORY: CHF, shortness of air. COMPARISON: None. FINDINGS: Single frontal view of the chest demonstrates mildly low lung volumes. There is mild cardiomegaly with central vascular congestion. No pleural effusion or pneumothorax is seen. No consolidation is seen. IMPRESSION: Cardiomegaly with central vascular congestion. Dictated on workstation # [id number] Dict: 07/18/211942 Trans: 07/18/211946 [id number] Interpreted by: ADELAIDA WINSTON MD Electronically signed by: Reviewed: Reviewed by Me Departure Communication (Admissions) Time/Spoke to Admitting Phy: 20:10 Discussed the case with Dr. Womack and she agrees with ICU placement on a Cardizem drip with consultation to cardiology. Time/Spoke to Consulting Phy: 20:15 Discussed the case with Dr. Cantu, cardiology and he agrees with Cardizem drip and would like her to be on 40 mg twice daily IV Lasix to start. Impression Primary Impression: Atrial fibrillation with rapid ventricular response Additional Impression: Acute exacerbation of congestive heart failure Qualified Codes: I50.9 - Heart failure, unspecified Disposition: ADMITTED INPATIENT Condition: Stable Admissions Decision to Admit Reason: Admit from ER (General) Decision to Admit/Date: Jul 18, 2021 Time/Decision to Admit Time: 20:00 Departure-Patient Inst. Referrals: [facility] (PCP/Family) Primary Care Physician CARY BURRIS Jul 18, 2021 19:43
[2021-07-18 19:44] LABS: ALANINE AMINOTRANSFERASE 18 U/L (0-55); ALBUMIN 3.9 GM/DL (3.2-4.5); ALKALINE PHOSPHATASE 90 U/L (40-136); BILIRUBIN,TOTAL 0.9 MG/DL (0.1-1.0); BUN/CREATININE RATIO 18; CALCIUM 9.4 MG/DL (8.5-10.1); CARBON DIOXIDE 16 MMOL/L (21-32); CHLORIDE 109 MMOL/L (98-107); CREATININE SERUM 2.29 MG/DL (0.60-1.30); GFR ESTIMATED 21; GLUCOSE 114 MG/DL (70-105); SODIUM 138 MMOL/L (135-145); TOTAL PROTEIN 6.3 GM/DL (6.4-8.2)
--- NOTE | 2021-07-18 19:47 | Diagnostic Imaging Report ---
HISTORY: CHF, shortness of air. COMPARISON: None. FINDINGS: Single frontal view of the chest demonstrates mildly low lung volumes. There is mild cardiomegaly with central vascular congestion. No pleural effusion or pneumothorax is seen. No consolidation is seen. IMPRESSION: Cardiomegaly with central vascular congestion. Dictated by: Dictated on workstation # [id number]
[2021-07-18] MEDS ORDERED: dilTIAZem DRIP PRE-MIX 125 ML IV SCH (20:00)
[2021-07-18] MEDS ORDERED: ASPIRIN 81 MG CHEW (CHILDREN'S ASA) PO ONE (20:15)
[2021-07-18] MEDS ORDERED: FUROSEMIDE 40 MG/4 ML INJ (LASIX) IVP ONE ×2 (20:15)
[2021-07-18 20:45] VITALS: BP 118/65
--- NOTE | 2021-07-18 21:04 | Tele-ICU Consult ---
History of Present Illness History of Present Illness Date Seen by Provider: Jul 18, 2021 Time Seen by Provider: 21:40 Date of Admission History of Present Illness This virtual visit was conducted using real time audio/video. Thank you for asking us to see this patient for respiratory distress due to Afib/RVR and CHF exacerbation.. HPC: Recent events: Presented with cp, sob, ankle swelling and weight gain. PMH: CHF HTN CKD SH: smoking history: never FH: Non-contributory ROS: limited by patient's clinical condition, but as in HPI PE: Morbidly obese. Irreg. HR 114 afib. O2 sat 96% on RA. HEENT: No obvious masses, adenopathy or JVD. Chest: clear to auscultation. CV: Irreg. S1 S2 No murmur or added sounds. Abd: Non-tender. Bowel sounds Y. : Unremarkable. Barron will be inserted shortly.. SPECIFICATIONS WRITER/psychiatric: Alert and oriented, grossly intact. No obvious focal findings. Extremities: 3-4 + edema. Weeping. Capillary refill < 3 seconds. Skin: unremarkable other than edema. Results: Elevated BUN 42, Creat 2.29, BNP 1105. CXR w cardiomegaly and central congestion. A/P: Respiratory insufficiency/distress: PRN O2. Available chart/ vitals / labs /images reviewed. Video assessment done using teleICU camera, rest of exam as per RN. Monitor for increasing oxygenation needs. Critical Care: critically ill patient. Cont IV lasix, Cardizem infusion. Cardiology consult pending. Discussed with MITA Kiser. Asked RN to reach out to eICU if any questions or concerns later. Time spent with patient/coordination of care with other health professionals (mins): 25 Allergies and Home Medications Allergies Coded Allergies: No Known Drug Allergies (Unverified , 12/23/17) Home Medications Hydrocodone/Acetaminophen 1 Each Tablet, 1 EACH PO Q4H PRN for PAIN-MODERATE TO SEVERE Prescribed by: KARINA HIGHTOWER on 12/23/17 1246 Past Medical/Social/Family Hx Patient Social History Tobacco Use?: No Smoking Status: Never a Smoker Use of E-Cig and/or Vaping dev: No Substance use?: No Alcohol Use?: No Immunizations Up To Date First/Initial COVID19 Vaccinat: NONE Second COVID19 Vaccination Cuate: NONE Tetanus Booster (TDap): Unknown Current Status status: No Advance Directives: No Communicates: Verbally Primary Language: Slovak Preferred Spoken Language: Slovak Is interpretation needed?: No Implanted or Applied Medical D: None Review of Systems Constitutional: weakness (See free text), weight gain EENTM: see HPI Respiratory: see HPI Cardiovascular: see HPI Gastrointestinal: see HPI Genitourinary: see HPI Musculoskeletal: see HPI Skin: see HPI Psychiatric/Neurological: See HPI All Other Systems Reviewed Negative Unless Noted: Yes Sepsis Event Evaluation Height, Weight, BMI Height: 5'4.00" Weight: 278lbs. oz. 126.579504sp; 52.00 BMI Method:Stated Exam Exam Patient acknowledged, consented, and participated in this virtual visit which was conducted using real time audio/video Vital Signs Date Time Temp Pulse Resp B/P (MAP) Pulse Ox O2 Delivery O2 Flow Rate FiO2 07/18/21 19:14 36.9 114 26 109/79 (89) 96 Room Air 07/18/21 19:14 Room Air Height & Weight Height: 5'4.00" Weight: 278lbs. oz. 126.031433qm; 52.00 BMI Method:Stated General Appearance: No Apparent Distress (See free text) Capillary Refill: Less Than 3 Seconds Gastrointestinal: normal bowel sounds, non tender, soft, no organomegaly Results Lab Laboratory Tests 07/18/21 19:00 Assessment/Plan Assessment/Plan See free text. Critical Care: Critically Ill Patient SIMONE FOOTE MD Jul 18, 2021 21:03
[2021-07-18] MEDS: dilTIAZem DRIP PRE-MIX 125 ML IV SCH (21:39)
[2021-07-18] MEDS ORDERED: NITROGLYCERIN 0.4 MG SL TABS BTL 25'S SL PRN (21:45)
[2021-07-18] MEDS ORDERED: morphine INJ 4 MG/ML 1 ML (VIAL/SYRINGE) IV PRN (21:45)
[2021-07-18] MEDS ORDERED: CATHETER FLUSH 10 ML SYR IV PRN (21:45)
[2021-07-18] MEDS ORDERED: ONDANSETRON 4 MG/2 ML (SDV) Z0FRAN IVP PRN (21:45)
[2021-07-18] MEDS: CATHETER FLUSH 10 ML SYR IV SCH (22:53)
[2021-07-19 01:22] LABS: BASOPHILS % (AUTO) 1 % (0-10); EOSINOPHILS # (AUTO) 0.2 10^3/uL (0.0-0.3); EOSINOPHILS % (AUTO) 4 % (0-10); HEMATOCRIT 35 % (35-52); HEMOGLOBIN 10.9 g/dL (11.5-16.0); LYMPHOCYTES % (AUTO) 16 % (12-44); MEAN CORPUSCULAR HEMOGLOBIN 31 pg (25-34); MEAN CORPUSCULAR HGB CONC 31 g/dL (32-36); MEAN CORPUSCULAR VOLUME 101 fL (80-99); MEAN PLATELET VOLUME 11.5 fL (9.0-12.2); MONOCYTES # (AUTO) 0.7 10^3/uL (0.0-1.0); MONOCYTES % (AUTO) 12 % (0-12); NEUTROPHILS # (AUTO) 4.3 10^3/uL (1.8-7.8); NEUTROPHILS % (AUTO) 68 % (42-75); PLATELET COUNT 173 10^3/uL (130-400); WHITE BLOOD COUNT 6.4 10^3/uL (4.3-11.0)
[2021-07-19 01:25] LABS: POTASSIUM 4.9 MMOL/L (3.6-5.0)
[2021-07-19 01:26] LABS: ALBUMIN 3.5 GM/DL (3.2-4.5)
[2021-07-19 01:27] LABS: CALCIUM 8.9 MG/DL (8.5-10.1)
[2021-07-19 01:30] LABS: BILIRUBIN,TOTAL 0.8 MG/DL (0.1-1.0)
[2021-07-19 01:32] LABS: CREATININE SERUM 2.16 MG/DL (0.60-1.30); PHOSPHORUS 4.4 MG/DL (2.3-4.7)
[2021-07-19 01:35] LABS: MAGNESIUM 2.8 MG/DL (1.6-2.4)
[2021-07-19] MEDS: CATHETER FLUSH 10 ML SYR IV SCH ×3 (05:31→20:44)
[2021-07-19] MEDS ORDERED: ENOXAPARIN 100 MG/1 ML (LOVENOX) SYR SC SCH ×2 (07:30→08:15)
[2021-07-19] MEDS: ASPIRIN E.C. 81 MG (ECOTRIN) TAB PO SCH (08:38)
[2021-07-19] MEDS: ENOXAPARIN 300 MG/3 ML (LOVENOX) MULTI-DOSE VIAL SQ SCH ×2 (08:39→20:43)
[2021-07-19] MEDS ORDERED: ACET-93 PO ×2 (08:48→08:50)
[2021-07-19] MEDS ORDERED: MULT-1136 PO (08:48)
[2021-07-19] MEDS ORDERED: IRON18TA PO (08:51)
--- NOTE | 2021-07-19 09:03 | Progress Note ---
FELIBERTO CHACON MED STUDENT 07/19/21 0903: Subjective Date Seen by a Provider: Jul 19, 2021 Time Seen by a Provider: 07:50 Subjective/Events-last exam Patient awake and alert and oriented x 4. Denies chest pain, SOB, palpitations, dizziness, headaches, vomiting, and abdominal pain. States is breathing better this am and swelling in BLE has decreased quite a bit since yesterday. Denies any needs or questions currently. Review of Systems General: No Chills, No Night Sweats HEENT: No Head Aches, No Visual Changes Pulmonary: No Dyspnea, No Cough Cardiovascular: No: Chest Pain, Palpitations, Paroxysmal Noc. Dyspnea Gastrointestinal: No: Nausea, Vomiting, Abdominal Pain, Diarrhea, Melena Genitourinary: No Dysuria, No Frequency Musculoskeletal: No: neck pain, back pain Neurological: No: Weakness, Numbness Objective Exam Last Set of Vital Signs Vital Signs Date Time Temp Pulse Resp B/P (MAP) Pulse Ox O2 Delivery O2 Flow Rate FiO2 07/19/21 08:00 36.1 07/19/21 08:00 89 16 106/83 97 Room Air Capillary Refill : Less Than 3 Seconds I&O Intake and Output 07/19/21 00:00 Daily Weight Change No General: Alert, Oriented X3, Cooperative, No Acute Distress, Other (Morbidly obese) HEENT: Atraumatic, PERRLA, EOMI, Mucous Memb Moist/Mccloud Neck: Supple, No LAD Lungs: Clear to Auscultation Heart: Other (Irregularrly irregular. Afib per bedside monitor on cardizem gtt) Abdomen: Normal Bowel Sounds, Soft, No Tenderness Extremities: No Clubbing, No Cyanosis, Normal Pulses, Other (1+ pitting edmea BLE. ) Skin: No Rashes, No Significant Lesion Neuro: Normal Speech, Sensation Intact, Cranial Nerves 3-12 NL Psych/Mental Status: Mental Status NL, Mood NL Results Lab Laboratory Tests 07/18/21 19:00: White Blood Count 7.3, Red Blood Count 3.82, Hemoglobin 11.9, Hematocrit 38, Mean Corpuscular Volume 99, Mean Corpuscular Hemoglobin 31, Mean Corpuscular Hemoglobin Concent 32, Red Cell Distribution Width 13.7, Platelet Count 243, Mean Platelet Volume 11.7, Immature Granulocyte % (Auto) 0, Neutrophils (%) (Auto) 81H, Lymphocytes (%) (Auto) 9L, Monocytes (%) (Auto) 7, Eosinophils (%) (Auto) 2, Basophils (%) (Auto) 0, Neutrophils # (Auto) 6.0, Lymphocytes # (Auto) 0.7L, Monocytes # (Auto) 0.5, Eosinophils # (Auto) 0.2, Basophils # (Auto) 0.0, Immature Granulocyte # (Auto) 0.0, Sodium Level 138, Potassium Level 5.0, Chloride Level 109H, Carbon Dioxide Level 16L, Anion Gap 13, Blood Urea Nitrogen 42H, Creatinine 2.29H, Estimat Glomerular Filtration Rate 21, BUN/Creatinine Ratio 18, Glucose Level 114H, Calcium Level 9.4, Corrected Calcium 9.5, Total Bilirubin 0.9, Aspartate Amino Transf (AST/SGOT) 19, Alanine Aminotransferase (ALT/SGPT) 18, Alkaline Phosphatase 90, Troponin I < 0.028, C-Reactive Protein High Sensitivity 0.25, B-Type Natriuretic Peptide 1105.7H, Total Protein 6.3L, Albumin 3.9 07/19/21 01:00: White Blood Count 6.4, Red Blood Count 3.48L, Hemoglobin 10.9L, Hematocrit 35, Mean Corpuscular Volume 101H, Mean Corpuscular Hemoglobin 31, Mean Corpuscular Hemoglobin Concent 31L, Red Cell Distribution Width 13.9, Platelet Count 173, Mean Platelet Volume 11.5, Immature Granulocyte % (Auto) 0, Neutrophils (%) (Auto) 68, Lymphocytes (%) (Auto) 16, Monocytes (%) (Auto) 12, Eosinophils (%) (Auto) 4, Basophils (%) (Auto) 1, Neutrophils # (Auto) 4.3, Lymphocytes # (Auto) 1.0, Monocytes # (Auto) 0.7, Eosinophils # (Auto) 0.2, Basophils # (Auto) 0.0, Immature Granulocyte # (Auto) 0.0, Sodium Level 136, Potassium Level 4.9, Chloride Level 109H, Carbon Dioxide Level 16L, Anion Gap 11, Blood Urea Nitrogen 43H, Creatinine 2.16H, Estimat Glomerular Filtration Rate 23, BUN/Creatinine Ratio 20, Glucose Level 97, Calcium Level 8.9, Corrected Calcium 9.3, Total Bilirubin 0.8, Aspartate Amino Transf (AST/SGOT) 18, Alanine Aminotransferase (ALT/SGPT) 18, Alkaline Phosphatase 80, Troponin I < 0.028, Total Protein 6.0L, Albumin 3.5, Phosphorus Level 4.4, Magnesium Level 2.8H, Triglycerides Level 64, Cholesterol Level 114, LDL Cholesterol Direct 62, VLDL Cholesterol 13, HDL Cholesterol 46 07/19/21 07:37: Troponin I < 0.028 Assessment/Plan Assessment/Plan Assess & Plan/Chief Complaint New onset atrial fibrillation with RVR -cardiology consulted -cardize gtt -lovenox therapeutic dosing Acute CHF -07-18 cxray: Cardiomegaly with central vascular congestion. -echocardiogram -BNP 1105 -lasix HTN -continue to monitor MADELINE vs CKD -baseline creatinine ? -creatinine 2.16 -continue to monitor Obesity BRIDGET NUNN MD 07/19/21 1308: Assessment/Plan Assessment/Plan Assess & Plan/Chief Complaint Agree with medical student note, a fib looks controlled, will continue on present meds, cardiology to see for a fib Supervisory-Addendum Brief Verification & Attestation Participated in pt care: history, physical Personally performed: history Care discussed with: Medical Student Procedures: n/a Results interpretation: Verified all documentation agree with medical student note, will continue on Cardize for a fib, cardiology to follow HEATHER CARRILLO DO 07/20/21 0623: Supervisory-Addendum Brief Verification & Attestation Participated in pt care: history, MDM, physical Personally performed: exam, history, MDM, supervision of care Care discussed with: Medical Student Procedures: n/a Results interpretation: Verified all documentation Verification and Attestation of Medical Student E/M Service A medical student performed and documented this service in my presence. I reviewed and verified all information documented by the medical student and made modifications to such information, when appropriate. I personally performed the physical exam and medical decision making. Heather Carrillo, Jul 20, 2021,06:23 FELIBERTO CHACON MED STUDENT Jul 19, 2021 09:03 BRIDGET NUNN MD Jul 19, 2021 13:08 HEATHER CARRILLO DO Jul 20, 2021 06:23
[2021-07-19] MEDS: KCL 20 MEQ TAB (K-DUR) PO SCH ×2 (10:15→17:51)
[2021-07-19] MEDS: FUROSEMIDE 40 MG/4 ML INJ (LASIX) IV SCH ×2 (10:15→15:54)
--- NOTE | 2021-07-19 11:02 | History & Physical ---
HPI History of Present Illness: 65 yo female came in because yesterday when she took a bath, she couldn't get out due to weakness and swelling in her legs. She had increasing weight gain and swelling over the last 3.5-4 months. She does take lasix at home, had been on 20 mg, she was increased to 40 mg by walk-in and when she saw her primary they dec reased back to 20 mg again, and he referred her to Nephrology because her kidney function was decreasing. Source: patient Date seen by provider: Jul 19, 2021 Time Seen by Provider: 10:59 Attending Physician Michael Womack MD [place] [place] Consult Date of Admission Jul 18, 2021 at 20:05 Home Medications Home Medications Reviewed patient Home Medication Reconciliation performed by pharmacy medication reconciliations solar technician and/or nursing. Patients Allergies have been reviewed. Allergies Coded Allergies: No Known Drug Allergies (Unverified , 12/23/17) [id number] Hx Patient Social History Smoking Status: Never a Smoker Alcohol Use?: No Have you traveled recently?: No Past Medical History PMHx: HTN Osteoarthritis SurgHx: Tonsillectomy Family Medical History Significant Family History: COPD, Other Conditions/Hx (sister with Down Syndrome, two siblings with celiac, mother in sleep at age 55 of unknown cause) Review of Systems ([facility]) Constitutional: No fever; weakness Respiratory: cough (occasional), dyspnea on exertion Cardiovascular: No chest pain; edema Gastrointestinal: No abdominal pain, No constipation, No diarrhea, No nausea, No vomiting Genitourinary: decreased output Musculoskeletal: joint pain (chronic arthritis) Skin: No rash Psychiatric/Neurological: Denies Anxiety, Denies Depressed Reviewed Test Results Reviewed Test Results Lab Laboratory Tests Test 07/18/21 19:00 07/19/21 01:00 07/19/21 07:37 Range/Units White Blood Count 7.3 6.4 4.3-11.0 10^3/uL Red Blood Count 3.82 3.48 L 3.80-5.11 10^6/uL Hemoglobin 11.9 10.9 L 11.5-16.0 g/dL Hematocrit 38 35 35-52 % Mean Corpuscular Volume 99 101 H 80-99 fL Mean Corpuscular Hemoglobin 31 31 25-34 pg Mean Corpuscular Hemoglobin Concent 32 31 L 32-36 g/dL Red Cell Distribution Width 13.7 13.9 10.0-14.5 % Platelet Count 243 173 130-400 10^3/uL Mean Platelet Volume 11.7 11.5 9.0-12.2 fL Immature Granulocyte % (Auto) 0 0 % Neutrophils (%) (Auto) 81 H 68 42-75 % Lymphocytes (%) (Auto) 9 L 16 12-44 % Monocytes (%) (Auto) 7 12 0-12 % Eosinophils (%) (Auto) 2 4 0-10 % Basophils (%) (Auto) 0 1 0-10 % Neutrophils # (Auto) 6.0 4.3 1.8-7.8 10^3/uL Lymphocytes # (Auto) 0.7 L 1.0 1.0-4.0 10^3/uL Monocytes # (Auto) 0.5 0.7 0.0-1.0 10^3/uL Eosinophils # (Auto) 0.2 0.2 0.0-0.3 10^3/uL Basophils # (Auto) 0.0 0.0 0.0-0.1 10^3/uL Immature Granulocyte # (Auto) 0.0 0.0 0.0-0.1 10^3/uL Sodium Level 138 136 135-145 MMOL/L Potassium Level 5.0 4.9 3.6-5.0 MMOL/L Chloride Level 109 H 109 H 98-107 MMOL/L Carbon Dioxide Level 16 L 16 L 21-32 MMOL/L Anion Gap 13 11 5-14 MMOL/L Blood Urea Nitrogen 42 H 43 H 7-18 MG/DL Creatinine 2.29 H 2.16 H 0.60-1.30 MG/DL Estimat Glomerular Filtration Rate 21 23 BUN/Creatinine Ratio 18 20 Glucose Level 114 H 97 70-105 MG/DL Calcium Level 9.4 8.9 8.5-10.1 MG/DL Corrected Calcium 9.5 9.3 8.5-10.1 MG/DL Total Bilirubin 0.9 0.8 0.1-1.0 MG/DL Aspartate Amino Transf (AST/SGOT) 19 18 5-34 U/L Alanine Aminotransferase (ALT/SGPT) 18 18 0-55 U/L Alkaline Phosphatase 90 80 40-136 U/L Troponin I < 0.028 < 0.028 < 0.028 <0.028 NG/ML C-Reactive Protein High Sensitivity 0.25 0.00-0.50 MG/DL B-Type Natriuretic Peptide 1105.7 H <100.0 PG/ML Total Protein 6.3 L 6.0 L 6.4-8.2 GM/DL Albumin 3.9 3.5 3.2-4.5 GM/DL Phosphorus Level 4.4 2.3-4.7 MG/DL Magnesium Level 2.8 H 1.6-2.4 MG/DL Triglycerides Level 64 <150 MG/DL Cholesterol Level 114 < 200 MG/DL LDL Cholesterol Direct 62 1-129 MG/DL VLDL Cholesterol 13 5-40 MG/DL HDL Cholesterol 46 40-60 MG/DL Radiology IMPRESSION: Cardiomegaly with central vascular congestion. Physical Exam-([facility]) Physical Exam Vital Signs VS - Last 72 Hours, by Label 07/18/21 07/18/21 07/18/21 07/18/21 19:14 19:14 20:45 21:00 Temp 36.9 Pulse 114 113 Resp 26 22 B/P (MAP) 109/79 (89) 118/65 Pulse Ox 96 97 97 O2 Delivery Room Air Room Air Room Air Room Air 07/18/21 07/18/21 07/18/21 07/18/21 21:03 21:11 21:30 21:45 Temp 36.6 Pulse 116 108 96 111 Resp 18 24 16 B/P (MAP) 123/113 90/66 94/79 Pulse Ox 97 96 91 O2 Delivery Room Air Room Air Room Air 07/18/21 07/18/21 07/18/21 07/18/21 22:00 22:15 22:30 23:00 Pulse 84 75 86 78 Resp 20 B/P (MAP) 101/59 92/75 95/78 91/70 Pulse Ox 96 97 95 96 O2 Delivery Room Air Room Air Room Air Room Air 07/18/21 07/18/21 07/19/21 07/19/21 23:10 23:13 00:00 01:00 Temp 36.6 Pulse 76 86 98 Resp 19 16 B/P (MAP) 91/70 111/62 115/84 Pulse Ox 96 96 97 96 O2 Delivery Room Air Room Air Room Air Room Air 07/19/21 07/19/21 07/19/21/17/21 01:00 02:00 03:00 03:14 Temp 36.3 Pulse 80 85 87 Resp 17 20 B/P (MAP) 114/79 104/70 Pulse Ox 97 96 O2 Delivery Room Air Room Air Room Air 07/19/21 07/19/21 07/19/21 07/19/21 03:15 04:00 05:00 06:00 Pulse 81 85 84 Resp 22 23 17 B/P (MAP) 100/72 111/68 100/70 Pulse Ox 98 96 98 96 O2 Delivery Room Air Room Air Room Air Room Air 07/19/21 07/19/21 07/19/21 07/19/21 07:00 07:00 07:52 08:00 Pulse 99 85 89 Resp 20 16 B/P (MAP) 112/82 106/83 Pulse Ox 97 98 97 O2 Delivery Room Air Room Air Room Air 07/19/21 07/19/21 07/19/21 07/19/21 08:00 09:00 10:00 11:00 Temp 36.1 Pulse 92 101 110 Resp 25 22 12 B/P (MAP) 99/60 112/78 104/72 Pulse Ox 96 94 97 O2 Delivery Room Air Room Air Room Air 07/19/21 07/19/21 07/19/21 12:00 12:00 12:50 Temp 36.6 Pulse 96 Resp 15 B/P (MAP) 103/78 Pulse Ox 97 97 O2 Delivery Room Air Room Air Capillary Refill : Less Than 3 Seconds General Appearance: WD/WN, no apparent distress Respiratory: lungs clear, normal breath sounds Cardiovascular: no murmur, irregularly irregular Gastrointestinal: normal bowel sounds, non tender, soft Extremities: pedal edema (2+ to thighs) Neurologic/Psychiatric: alert, normal mood/affect Skin: normal color, warm/dry Assessment/Plan Assessment/Plan Admission Status: Inpatient Order (span 2 midnights) Reason for Inpatient Admission: A fib wtih RVR requiring drip, acute CHF exacerbation (1) Atrial fibrillation with rapid ventricular response Status: Acute Assessment & Plan: Started on cardizem drip, enoxaparin treatment dose, appreciate Cardiology recommendations. (2) Congestive heart failure Status: Acute Assessment & Plan: Cardiology consulted, appreciate recommendations. Echo pending. On furosemide 40 mg IV BID. Qualifiers: (3) Metabolic acidosis Status: Acute Assessment & Plan: Secondary to renal insufficiency, monitor. (4) Acute renal insufficiency Status: Chronic Assessment & Plan: With worsening baseline already outpatient, possibly developing CKD. Has ouptatient consult next month with Nephrology. Cr improved this morning. (5) Hypertension Status: Chronic Qualifiers: Qualified Codes: I10 - Essential (primary) hypertension (6) DVT prophylaxis Status: Acute Assessment & Plan: On treatment dose enoxaparin MICHAEL WOMACK MD Jul 19, 2021 11:02
[2021-07-19] MEDS ORDERED: DIGOXIN 0.25 MG/ML (LANOXIN) 2 ML AMP IV ONE (11:30)
--- NOTE | 2021-07-19 11:34 | Consultation-Cardiology ---
HPI-Cardiology Cardiology Consultation Date of Consultation 07/19/21 Date of Admission Time Seen by Provider: 10:59 Indication: Atrial fibrillation, CHF HPI 65 years old lady with history of chronic renal insufficiency, has been told that she has congestive heart failure with elevated BNP in the past. Has been having worsening pedal edema for the past few months, reported significant weight gain in the past few months. Patient was unable to get out of the bathtub and was having palpitation and shortness of breath and brought to the emergency room. She was noted to be in atrial fibrillation with rapid ventricular response. Currently not having chest pain. She denied any syncope or near syncopal episodes. She is scheduled to see a business intelligence consultant but did not see a commercial attache yet. Home Medications & Allergies Allergies: Coded Allergies: No Known Drug Allergies (Unverified , 12/23/17) Home Medication List Reviewed: Yes [id number] Hx Patient Social History Marital Status: Employed/Student: retired Smoking Status: Former Smoker Have you traveled recently?: No Alcohol Use?: No Past Medical History Discussed below Family Medical History Significant Family History: COPD, Other Conditions/Hx (sister with Down Syndrome, two siblings with celiac, mother in sleep at age 55 of unknown cause) Family Medical Hx Noncontributory Review of Systems-General Review of Systems Constitutional: see HPI; No fever; malaise, weakness EENTM: see HPI, no symptoms reported Respiratory: see HPI, cough (occasional), dyspnea on exertion, orthopnea Cardiovascular: see HPI; No chest pain; edema; No Hx of Intervention; palpitations; No syncope, No vascular heart diseas, No other Gastrointestinal: see HPI; No abdominal pain, No constipation, No diarrhea, No nausea, No vomiting Genitourinary: see HPI, decreased output : No Musculoskeletal: see HPI, joint pain (chronic arthritis), joint swelling Skin: see HPI; No rash Psychiatric/Neurological: See HPI; Denies Anxiety, Denies Depressed All Other Systems Reviewed Negative Unless Noted: Yes Reviewed Test Results Reviewed Test Results Lab Laboratory Tests Test 07/18/21 19:00 07/19/21 01:00 07/19/21 07:37 Range/Units White Blood Count 7.3 6.4 4.3-11.0 10^3/uL Red Blood Count 3.82 3.48 L 3.80-5.11 10^6/uL Hemoglobin 11.9 10.9 L 11.5-16.0 g/dL Hematocrit 38 35 35-52 % Mean Corpuscular Volume 99 101 H 80-99 fL Mean Corpuscular Hemoglobin 31 31 25-34 pg Mean Corpuscular Hemoglobin Concent 32 31 L 32-36 g/dL Red Cell Distribution Width 13.7 13.9 10.0-14.5 % Platelet Count 243 173 130-400 10^3/uL Mean Platelet Volume 11.7 11.5 9.0-12.2 fL Immature Granulocyte % (Auto) 0 0 % Neutrophils (%) (Auto) 81 H 68 42-75 % Lymphocytes (%) (Auto) 9 L 16 12-44 % Monocytes (%) (Auto) 7 12 0-12 % Eosinophils (%) (Auto) 2 4 0-10 % Basophils (%) (Auto) 0 1 0-10 % Neutrophils # (Auto) 6.0 4.3 1.8-7.8 10^3/uL Lymphocytes # (Auto) 0.7 L 1.0 1.0-4.0 10^3/uL Monocytes # (Auto) 0.5 0.7 0.0-1.0 10^3/uL Eosinophils # (Auto) 0.2 0.2 0.0-0.3 10^3/uL Basophils # (Auto) 0.0 0.0 0.0-0.1 10^3/uL Immature Granulocyte # (Auto) 0.0 0.0 0.0-0.1 10^3/uL Sodium Level 138 136 135-145 MMOL/L Potassium Level 5.0 4.9 3.6-5.0 MMOL/L Chloride Level 109 H 109 H 98-107 MMOL/L Carbon Dioxide Level 16 L 16 L 21-32 MMOL/L Anion Gap 13 11 5-14 MMOL/L Blood Urea Nitrogen 42 H 43 H 7-18 MG/DL Creatinine 2.29 H 2.16 H 0.60-1.30 MG/DL Estimat Glomerular Filtration Rate 21 23 BUN/Creatinine Ratio 18 20 Glucose Level 114 H 97 70-105 MG/DL Calcium Level 9.4 8.9 8.5-10.1 MG/DL Corrected Calcium 9.5 9.3 8.5-10.1 MG/DL Total Bilirubin 0.9 0.8 0.1-1.0 MG/DL Aspartate Amino Transf (AST/SGOT) 19 18 5-34 U/L Alanine Aminotransferase (ALT/SGPT) 18 18 0-55 U/L Alkaline Phosphatase 90 80 40-136 U/L Troponin I < 0.028 < 0.028 < 0.028 <0.028 NG/ML C-Reactive Protein High Sensitivity 0.25 0.00-0.50 MG/DL B-Type Natriuretic Peptide 1105.7 H <100.0 PG/ML Total Protein 6.3 L 6.0 L 6.4-8.2 GM/DL Albumin 3.9 3.5 3.2-4.5 GM/DL Phosphorus Level 4.4 2.3-4.7 MG/DL Magnesium Level 2.8 H 1.6-2.4 MG/DL Triglycerides Level 64 <150 MG/DL Cholesterol Level 114 < 200 MG/DL LDL Cholesterol Direct 62 1-129 MG/DL VLDL Cholesterol 13 5-40 MG/DL HDL Cholesterol 46 40-60 MG/DL Radiology IMPRESSION: Cardiomegaly with central vascular congestion. Physical Exam Physical Exam Vital Signs Vital Signs - First Documented 07/18/21 19:14 Temp 36.9 Pulse 114 Resp 26 B/P (MAP) 109/79 (89) Pulse Ox 96 O2 Delivery Room Air Capillary Refill : Less Than 3 Seconds Height, Weight, BMI Height: 5'4.00" Weight: 278lbs. oz. 126.273825dk; 52.19 BMI Method:Stated General Appearance: Mild Distress Eyes: Bilateral Eye Normal Inspection, Bilateral Eye PERRL, Bilateral Eye EOMI HEENT: PERRL/EOMI, TMs Normal, Normal ENT Inspection, Pharynx Normal, Moist Mucous Membranes Neck: Full Range of Motion, Normal Inspection, Non Tender, Supple, Carotid Bruit Respiratory: Chest Non Tender, No Accessory Muscle Use, No Respiratory Distre ss, Crackles, Decreased Breath Sounds Cardiovascular: No JVD, Normal Peripheral Pulses, Systolic Murmur, Gallop/S3, Irregularly Irregular Gastrointestinal: Normal Bowel Sounds, No Organomegaly, No Pulsatile Mass, Non Tender, Soft Back: Normal Inspection, No CVA Tenderness, No Vertebral Tenderness Extremity: Normal Capillary Refill, Normal Inspection, Normal Range of Motion, Non Tender, No Calf Tenderness, Pedal Edema (+2-3 pedal edema) Neurologic/Psychiatric: Alert, Oriented x3, No Motor/Sensory Deficits, Normal Mood/Affect Skin: Normal Color, Warm/Dry Lymphatic: No Adenopathy A/P-Cardiology Admission Diagnosis Congestive heart failure, acute on chronic left ventricular systolic dysfunction, ischemic cardiomyopathy Coronary artery disease Atrial fibrillation Acute renal failure Assessment/Plan Congestive heart failure, acute left ventricular systolic dysfunction with segmental wall motion abnormality involving the inferior wall and inferolateral wall, probably ischemic in nature. Patient has echo done today on July 19, 2021 showing ejection fraction 30 to 35%. I am planning to evaluate coronary angiogram with very minimal amount of contrast due to her renal insufficiency. In addition we will start aspirin, beta-blockers, cannot tolerate SUSHIL inhibitor and/or ARB due to renal failure. Atrial fibrillation with rapid ventricular response, started on Cardizem drip, borderline hypotensive, I am adding low-dose beta-blockers and evaluate tolerance and response in addition I will add digoxin at low dose and monitor dig level closely. I will consider ASHU and cardioversion after ruling out critical coronary artery disease. [id number] score of 4, yearly risk of stroke without oral anticoagulation is 4.2%. Currently on Lovenox. Planning to initiate oral anticoagulation after cardiac catheterization. Coronary artery disease, high suspicion of underlying coronary artery disease due to her congestive heart failure and segmental wall motion abnormality, planning for coronary angiogram Hypertension, currently borderline hypotension due to Cardizem drip and d iuretics. Monitor blood pressure closely Acute on chronic renal failure, could be secondary to low cardiac output. Monitor renal function closely while using diuretics Peripheral edema secondary to renal failure and congestive heart failure, using diuretics cautiously. Morbid obesity. BMI 52, discussed weight loss BRENDA SAMSON MD Jul 19, 2021 11:34
[2021-07-19] MEDS ORDERED: meTOprolol TARTRATE 25 MG (LOPRESSOR) TABLET ONE (11:53)
[2021-07-19] MEDS ORDERED: DIGOXIN 0.25 MG/ML (LANOXIN) 2 ML AMP ONE (11:53)
[2021-07-19] MEDS: meTOprolol TARTRATE 25 MG (LOPRESSOR) TABLET PO SCH ×2 (12:02→20:43)
[2021-07-19] MEDS ORDERED: NS IV 1000 ML 1,000 ML ONE (12:49)
[2021-07-19] MEDS ORDERED: MULT-1021 PO (12:58)
[2021-07-19] MEDS ORDERED: FERR-84 PO (12:58)
[2021-07-19] MEDS ORDERED: LISI20TA26 PO (12:58)
[2021-07-19] MEDS: dilTIAZem DRIP PRE-MIX 125 ML IV SCH (13:34)
[2021-07-19] MEDS: NS IV 1000 ML 1,000 ML IV SCH ×2 (13:34→22:21)
[2021-07-20 04:46] LABS: BASOPHILS % (AUTO) 1 % (0-10); EOSINOPHILS # (AUTO) 0.4 10^3/uL (0.0-0.3); EOSINOPHILS % (AUTO) 9 % (0-10); HEMATOCRIT 37 % (35-52); HEMOGLOBIN 11.5 g/dL (11.5-16.0); LYMPHOCYTES # (AUTO) 0.9 10^3/uL (1.0-4.0); LYMPHOCYTES % (AUTO) 18 % (12-44); MEAN CORPUSCULAR HEMOGLOBIN 31 pg (25-34); MEAN CORPUSCULAR HGB CONC 31 g/dL (32-36); MEAN CORPUSCULAR VOLUME 100 fL (80-99); MEAN PLATELET VOLUME 11.8 fL (9.0-12.2); MONOCYTES # (AUTO) 0.5 10^3/uL (0.0-1.0); MONOCYTES % (AUTO) 9 % (0-12); NEUTROPHILS # (AUTO) 3.1 10^3/uL (1.8-7.8); NEUTROPHILS % (AUTO) 63 % (42-75); PLATELET COUNT 165 10^3/uL (130-400); WHITE BLOOD COUNT 4.9 10^3/uL (4.3-11.0)
[2021-07-20 04:56] LABS: ALBUMIN 3.5 GM/DL (3.2-4.5)
[2021-07-20 04:58] LABS: CALCIUM 8.6 MG/DL (8.5-10.1)
[2021-07-20 04:59] LABS: TOTAL PROTEIN 5.9 GM/DL (6.4-8.2)
[2021-07-20 05:01] LABS: BILIRUBIN,TOTAL 1.1 MG/DL (0.1-1.0)
[2021-07-20 05:02] LABS: PHOSPHORUS 4.1 MG/DL (2.3-4.7)
[2021-07-20 05:03] LABS: CREATININE SERUM 1.8 MG/DL (0.60-1.30)
[2021-07-20 05:05] LABS: MAGNESIUM 2.6 MG/DL (1.6-2.4)
[2021-07-20] MEDS: CATHETER FLUSH 10 ML SYR IV SCH ×3 (05:11→20:22)
[2021-07-20] MEDS: meTOprolol TARTRATE 25 MG (LOPRESSOR) TABLET PO SCH (07:48)
[2021-07-20] MEDS: FERROUS SULF 325 MG (IRON) TAB PO SCH (07:48)
[2021-07-20] MEDS: KCL 20 MEQ TAB (K-DUR) PO SCH ×2 (07:48→18:23)
[2021-07-20] MEDS: DIGOXIN 0.125 MG (LANOXIN) TAB PO SCH (07:48)
[2021-07-20] MEDS: ASPIRIN E.C. 81 MG (ECOTRIN) TAB PO SCH (07:48)
[2021-07-20] MEDS: ACETAMINOPHEN 500 MG TAB (TYLENOL) PO SCH (07:49)
[2021-07-20] MEDS: NS IV 1000 ML 1,000 ML IV SCH ×5 (07:49→23:42)
[2021-07-20] MEDS: FUROSEMIDE 40 MG/4 ML INJ (LASIX) IV SCH ×2 (07:49→16:27)
[2021-07-20] MEDS: ENOXAPARIN 300 MG/3 ML (LOVENOX) MULTI-DOSE VIAL SQ SCH (07:51)
[2021-07-20] MEDS ORDERED: VERAPAMIL 5 MG/2 ML (CALAN) VIAL IV ONE ×2 (08:00→08:27)
[2021-07-20] MEDS ORDERED: MIDAZOLAM 5 MG/5 ML (VERSED) VIAL ONE ×2 (08:01→08:28)
[2021-07-20] MEDS ORDERED: HEParin 1000 UNIT/ML (10ML VIAL) FOR BOLUS ONE ×2 (08:01→08:28)
[2021-07-20] MEDS ORDERED: fentaNYL INJ 100 MCG/2 ML AMP ONE ×2 (08:01→08:27)
[2021-07-20] MEDS ORDERED: LIDOCAINE 1% INJ 20 ML 20 ML VIAL ONE ×2 (08:01→08:28)
[2021-07-20] MEDS ORDERED: NS IV 1000 ML 0 ML ONE (08:02)
[2021-07-20] MEDS ORDERED: HEParin (CATH LAB) 0 ML IV ONE (08:02)
[2021-07-20] MEDS ORDERED: NITRO DRIP 25000 MCG/D5W 0 ML IV ONE (08:02)
[2021-07-20] MEDS ORDERED: NITRO DRIP 25000 MCG/D5W 250 ML IV ONE (08:28)
[2021-07-20] MEDS ORDERED: HEParin (CATH LAB) 2,000 ML IV ONE (08:28)
[2021-07-20] MEDS ORDERED: NS IV 1000 ML 1,000 ML ONE (08:28)
--- NOTE | 2021-07-20 08:44 | Conscious Sedation/ASA ---
Conscious Sedation Pre-Proced Time 08:43 ASA Score 3 For ASA 3 and 4: Consider anesthesia and medical clearance. Also, for patients with a history of failed moderate sedation consider anesthesia. Airway Lungs Heart ASA score ASA 1: a normal healthy patient ASA 2: a patient with a mild systemic disease (mid diabetes, controlled hypertension, obesity x ASA 3: a patient with a severe systemic disease that limits activity (angina, COPD, prior Myocardial infarction) ASA 4: a patient with an incapacitating disease that is a constant threat to life (CHF, renal failure) ASA 5: a moribund patient not expected to survive 24 hrs. (ruptured aneurysm) ASA 6: a declared brain- patient whose organs are being harvested. For emergent operations, add the letter E after the classification Mallampati Classification Grade 3 Sedation Plan Analgesia, Amnesia, Plan communicated to team members, Discussed options with patient/fam, Discussed risks with patient/fam The patient is an appropriate candidate to undergo the planned procedure, sedation, and anesthesia. The patient immediately re-assessed prior to indication. BRENDA SAMSON MD Jul 20, 2021 08:44
--- NOTE | 2021-07-20 09:02 | Tele-ICU Progress Note ---
Progress Note 65 y/o female admitted with A fib/rvr and CHF Has morbid obesity ith BMI > 50 ECHO: acute left ventricular systolic dysfunction with segmental wall motion abnormality involving the inferior wall and inferolateral wall, probably ischemic in nature. Patient has echo done today on July 19, 2021 showing ejection fraction 30 to 35%. I Plan for cardiac cath. Atrial fibrillation with rapid ventricular response, started on Cardizem drip, Anticoagulated with lovenox with plans for DOAC Focused Exam Sepsis Stage: Ruled Out Height, Weight, BMI Height: 5'4.00" Weight: 278lbs. oz. 126.761669hg; 52.19 BMI Method:Stated Time of Focused Exam: 09:02 Laboratory Tests 07/20/21 04:10 Progress Time Seen by Provider: 09:03 see above Assessment/Admission Diagnosis CHF a fib RVR Cardiac cath pending Discussion and Recomendations cardiac cath BRIDGET DWYER MD Jul 20, 2021 09:02
--- NOTE | 2021-07-20 09:45 | Cardiac Cath Report ---
Cardiac Cath Report Physician (s)/Reeling Machine Operator (s) Physician BRENDA SAMSON MD Pre-Procedure Diagnosis Pre-Procedure Diagnosis: Coronary artery disease, congestive heart failure Post-Procedure Note Procedure Start Date: Jul 20, 2021 Name of Procedure: Left heart catheterization Findings/Procedure Note PROCEDURE NOTE: 65-year-old lady with chronic kidney disease, admitted with acute renal failure, congestive heart failure, had severe left ventricular systolic dysfunction, decided to proceed with cardiac catheterization possible PTCA. After explaining the procedure to the patient, all pros and cons were explained, all questions were answered. The patient signed the consent and then she was placed on the cardiac catheterization laboratory. Groin was prepped SL fashion local anesthesia was used. Sheath placed in the right radial artery, [place] catheter was prolapsed to the left ventricular cavity, pressure was measured, no left ventriculogram was done. I proceeded with coronary angiogram cautiously using very small amount of contrast, intubated the right and left coronary system and angiogram was done At the end of the procedure the sheath was removed. Vascular band deployed FINDINGS: Hemodynamics LV 105/31, end-diastolic pressure of 31 Aorta 99/72 mean of 75 ANATOMY: Left Main is free of obstructive disease Left Anterior Descending is moderate in size, proximal LAD 60 to 70% stenosis, mid to distal LAD has 2 lesions with severe stenosis Left Circumflex is moderate in size with no obstructive disease Right Coronary Artery is tortuous, moderate in size with no obstructive disease LV Gram was not done, pressure was measured CONCLUSION: 1. Severe stenosis at multiple segments in the mid and distal LAD, borderline lesion in the proximal LAD 2. Otherwise nonobstructive coronary artery disease 3. Left ventricular end-diastolic pressure is significantly elevated, patient is known to have severe cardiomyopathy with ejection fraction 30 to 35% DISCUSSION AND RECOMMENDATION: Patient will require high risk intervention to the LAD, I recommend arrangement to transfer to a tertiary care center for nephrology evaluation and involvement in her management pre and post intervention on the LAD. I will start diuresis at this time especially with aggressive hydration post catheterization Anesthesia Type: Conscious Sedation Estimated blood loss (mL): 5 ml Contrast Amount: 19 ml Total Radiation Dose: 420 mGy Post-Procedure Diagnosis Post-operative diagnosis: Coronary artery disease Congestive heart failure Atrial fibrillation Hypertension BRENDA SAMSON MD Jul 20, 2021 09:45
--- NOTE | 2021-07-20 09:48 | Cardiology Progress Note ---
Subjective Date Seen by Provider: Jul 20, 2021 Time Seen by Provider: 09:46 Subjective/Events-last exam Patient was seen at bedside, laying down comfortably, feeling better Review of Systems General: No Chills, No Night Sweats, No Fatigue, No Malaise, No Appetite, No Other HEENT: No Head Aches, No Visual Changes, No Eye Pain, No Ear Pain, No Dysphasia, No Sinus Congestion, No Post Nasal Drip, No Sore Throat, No Other Pulmonary: Dyspnea; No Cough, No Pleuritic Chest Pain, No Other Cardiovascular: Edema; No: Chest Pain, Palpitations, Orthopnea, Paroxysmal Noc. Dyspnea, Lt Headedness, Other Focused Exam Time of Focused Exam: 09:02 Objective-Cardiology Exam Last Set of Vital Signs Vital Signs 07/20/21 08:32 Temp 36.2 I&O Intake and Output 07/20/21 00:00 Intake Total 2435 ml Output Total 3275 ml Balance -840 ml Intake Oral 1310 ml IV Total 1125 ml Output Urine Total 3275 ml General: Alert, Oriented X3, Cooperative, No Acute Distress, Other (Morbidly obese) HEENT: Atraumatic, PERRLA, EOMI, Mucous Memb Moist/[place] Neck: Supple, No LAD Lungs: Clear to Auscultation Heart: Normal S1, Normal S2, Other (Irregularrly irregular. Afib per bedside monitor on cardizem gtt) Abdomen: Normal Bowel Sounds, Soft, No Tenderness Extremities: No Clubbing, No Cyanosis, Normal Pulses, Other (1+ pitting edmea BLE. ) Skin: No Rashes, No Significant Lesion Neuro: Normal Speech, Sensation Intact, Cranial Nerves 3-12 NL Psych/Mental Status: Mental Status NL, Mood NL Results Lab Laboratory Tests 07/20/21 04:10 A/P-Cardiology Admission Diagnosis Congestive heart failure, acute on chronic left ventricular systolic dysfunction, ischemic cardiomyopathy Coronary artery disease Atrial fibrillation Acute renal failure Assessment/Plan Congestive heart failure, acute left ventricular systolic dysfunction ischemic in nature, ejection fraction 30 to 35%. Started on beta-blockers, I will increase the dose and monitor tolerance and response. Unable to tolerate SUSHIL inhibitor and/or ARB due to to renal failure Atrial fibrillation with rapid ventricular response, started on Cardizem drip, borderline hypotensive, I will change Cardizem to oral and increase metoprolol dose and evaluate tolerance and response, possible ASHU and cardioversion in the morning [id number] score of 4, yearly risk of stroke without oral anticoagulation is 4.2%. I am switching to Eliquis and monitor Coronary artery disease, cardiac catheterization was done on July 20, 2021 showing tortuous LAD with multiple lesions of severe stenosis at the mid and di stal LAD otherwise mild coronary artery disease. Patient will require high risk intervention with nephrology involvement pre and post procedure. I recommend transferring to a tertiary care center Hypertension, currently borderline hypotension due to Cardizem drip and diuretics, discontinue Cardizem drip and use oral dose and metoprolol and evaluate tolerance and response Acute on chronic renal failure, continue to monitor renal function closely Peripheral edema secondary to renal failure and congestive heart failure, using diuretics cautiously. Morbid obesity. BMI 52, discussed weight loss BRENDA SAMSON MD Jul 20, 2021 09:48
[2021-07-20] MEDS: APIXABAN 5 MG (ELIQUIS) TABLET PO SCH (20:21)
[2021-07-20] MEDS: meTOprolol TARTRATE 50 MG (LOPRESSOR) TAB PO SCH (20:21)
[2021-07-20] MEDS ORDERED: BISACODYL 10 MG SUPP (DULCOLAX) PR ONE (23:00)
[2021-07-21 05:25] LABS: BASOPHILS % (AUTO) 1 % (0-10); EOSINOPHILS # (AUTO) 0.4 10^3/uL (0.0-0.3); EOSINOPHILS % (AUTO) 8 % (0-10); HEMATOCRIT 37 % (35-52); HEMOGLOBIN 11.4 g/dL (11.5-16.0); LYMPHOCYTES # (AUTO) 0.8 10^3/uL (1.0-4.0); LYMPHOCYTES % (AUTO) 16 % (12-44); MEAN CORPUSCULAR HEMOGLOBIN 31 pg (25-34); MEAN CORPUSCULAR HGB CONC 31 g/dL (32-36); MEAN CORPUSCULAR VOLUME 100 fL (80-99); MEAN PLATELET VOLUME 11.6 fL (9.0-12.2); MONOCYTES # (AUTO) 0.5 10^3/uL (0.0-1.0); MONOCYTES % (AUTO) 10 % (0-12); NEUTROPHILS # (AUTO) 3.6 10^3/uL (1.8-7.8); NEUTROPHILS % (AUTO) 66 % (42-75); PLATELET COUNT 174 10^3/uL (130-400); WHITE BLOOD COUNT 5.4 10^3/uL (4.3-11.0)
[2021-07-21 05:36] LABS: ALBUMIN 3.3 GM/DL (3.2-4.5); POTASSIUM 5.1 MMOL/L (3.6-5.0)
[2021-07-21 05:37] LABS: CALCIUM 8.5 MG/DL (8.5-10.1)
[2021-07-21 05:38] LABS: TOTAL PROTEIN 5.7 GM/DL (6.4-8.2)
[2021-07-21 05:42] LABS: CREATININE SERUM 1.48 MG/DL (0.60-1.30); PHOSPHORUS 3.5 MG/DL (2.3-4.7)
[2021-07-21] MEDS: CATHETER FLUSH 10 ML SYR IV SCH ×3 (05:42→22:30)
[2021-07-21] MEDS: NS IV 1000 ML 1,000 ML IV SCH ×4 (05:43→22:50)
[2021-07-21 05:45] LABS: MAGNESIUM 2.2 MG/DL (1.6-2.4)
[2021-07-21] MEDS ORDERED: LIDOCAINE 2% VISCOUS 15 ML UDC PO ONE (08:00)
[2021-07-21] MEDS ORDERED: proPOfol 200 MG/20 ML (DIPRIVAN) VIAL IV ONE (08:50)
[2021-07-21] MEDS ORDERED: MIDAZOLAM 2 MG/2 ML (VERSED) VIAL ONE (08:50)
[2021-07-21] MEDS ORDERED: MIDAZOLAM 2 MG/2 ML (VERSED) VIAL IVP ONE ×2 (09:00)
[2021-07-21] MEDS ORDERED: proPOfol 500 MG/50 ML (DIPRIVAN) VIAL IV ONE (09:00)
--- NOTE | 2021-07-21 09:48 | Cardioversion ---
Cardioversion PROCEDURE PHYSICIAN: Brenda Cantu DATE OF PROCEDURE: 07/21/21 DIRECT EXTERNAL ELECTRICAL CARDIOVERSION: Indications: Atrial Fibrillation with rapid ventricular rate Preoperative diagnoses: Atrial Fibrillation with rapid ventricular rate Postoperative diagnosis: Sinus rhythm, Successful Electrical Cardioversion Anesthesia: By Anesthesia services Complications: None Specimen: None Contrast: 0 Flouroscopy: none Procedure Details: The patient was brought the slab polisher after informed consent was taken, all the risks and complications were explained including the risk of stroke. Electrical cardioversion was carried out with anesthesia support with propofol. 200 joules of synchronized shock was delivered through external patches which promptly restored sinus rhythm. The patient tolerated the procedure well. Conclusions: Successful electrical cardioversion with no complication BRENDA CANTU MD Jul 21, 2021 09:48
--- NOTE | 2021-07-21 09:52 | Cardiology Progress Note ---
Subjective Date Seen by Provider: Jul 21, 2021 Time Seen by Provider: 09:49 Subjective/Events-last exam Patient is laying down in bed, feeling better, underwent cardioversion and back to sinus rhythm. Review of Systems General: No Chills, No Night Sweats, No Fatigue, No Malaise, No Appetite, No Other HEENT: No Head Aches, No Visual Changes, No Eye Pain, No Ear Pain, No Dysphasia, No Sinus Congestion, No Post Nasal Drip, No Sore Throat, No Other Pulmonary: No Dyspnea, No Cough, No Pleuritic Chest Pain, No Other Cardiovascular: No: Chest Pain, Palpitations, Orthopnea, Paroxysmal Noc. Dyspnea, Edema, Lt Headedness, Other Focused Exam Time of Focused Exam: 09:02 Objective-Cardiology Exam Last Set of Vital Signs Vital Signs 07/21/21 07/21/21 08:25 09:00 Temp 36.4 Pulse 94 Resp 24 B/P (MAP) 98/84 Pulse Ox 100 O2 Delivery Nasal Cannula O2 Flow Rate 3.00 I&O Intake and Output 07/21/21 00:00 Intake Total 2600 ml Output Total 4850 ml Balance -2250 ml Intake Oral 1475 ml IV Total 1125 ml Output Urine Total 4850 ml General: Alert, Oriented X3, Cooperative, No Acute Distress, Other (Morbidly obese) HEENT: Atraumatic, PERRLA, EOMI, Mucous Memb Moist/[place] Neck: Supple, No LAD Lungs: Clear to Auscultation Heart: Regular Rate, Normal S1, Normal S2 Abdomen: Normal Bowel Sounds, Soft, No Tenderness Extremities: No Clubbing, No Cyanosis, Normal Pulses, Other (1+ pitting edmea BLE. ) Skin: No Rashes, No Significant Lesion Neuro: Normal Speech, Sensation Intact, Cranial Nerves 3-12 NL Psych/Mental Status: Mental Status NL, Mood NL Results Lab Laboratory Tests 07/21/21 05:15 A/P-Cardiology Admission Diagnosis Congestive heart failure, acute on chronic left ventricular systolic dysfunction, ischemic cardiomyopathy Coronary artery disease Atrial fibrillation Acute renal failure Assessment/Plan Congestive heart failure, acute left ventricular systolic dysfunction ischemic in nature, ejection fraction 30 to 35%. Unable to tolerate SUSHIL inhibitor and/or ARB due to to renal failure Paroxysmal atrial fibrillation, underwent ASHU and electrical cardioversion on July 21, 2021, currently in sinus rhythm, maintained on Toprol, Cardizem and Eliquis. Continue to monitor [id number] score of 4, yearly risk of stroke without oral anticoagulation is 4.2%. I am switching to Eliquis and monitor Coronary artery disease, cardiac catheterization was done on July 20, 2021 showing tortuous LAD with multiple lesions of severe stenosis at the mid and distal LAD otherwise mild coronary artery disease. I was planning to refer the patient for outpatient evaluation and possible high risk intervention with nephrology involvement due to her renal insufficiency. Monitoring her renal function showed improvement. I will continue monitoring at this time and will adjust our plan accordingly Hypertension, better controlled on current medication, continue to monitor Acute on chronic renal failure, improving slowly, continue to monitor renal function closely Peripheral edema secondary to renal failure and congestive heart failure, using diuretics cautiously. Morbid obesity. BMI 52, discussed weight loss BRENDA SAMSON MD Jul 21, 2021 09:51
--- NOTE | 2021-07-21 10:09 | Tele-ICU Progress Note ---
Progress Note video rounds completed 65 y/o with afib cardioverted this am VSS PLAN: diet today and monitor for arrthymia plans home tomororw per cardiology Focused Exam Height, Weight, BMI Height: 5'4.00" Weight: 278lbs. oz. 126.249662xg; 52.19 BMI Method:Stated Time of Focused Exam: 09:02 BRIDGET DWYER MD Jul 21, 2021 10:09
[2021-07-21] MEDS: ACETAMINOPHEN 500 MG TAB (TYLENOL) PO SCH ×2 (10:27→14:39)
[2021-07-21] MEDS: APIXABAN 5 MG (ELIQUIS) TABLET PO SCH ×2 (10:27→20:01)
[2021-07-21] MEDS: ASPIRIN E.C. 81 MG (ECOTRIN) TAB PO SCH (10:27)
[2021-07-21] MEDS: FERROUS SULF 325 MG (IRON) TAB PO SCH (10:27)
[2021-07-21] MEDS: DIGOXIN 0.125 MG (LANOXIN) TAB PO SCH (10:27)
[2021-07-21] MEDS: meTOprolol TARTRATE 50 MG (LOPRESSOR) TAB PO SCH ×2 (10:27→20:01)
[2021-07-21] MEDS: FUROSEMIDE 40 MG/4 ML INJ (LASIX) IV SCH ×2 (10:27→16:19)
[2021-07-21] MEDS: dilTIAZem120 MG (CARDIZEM CD) CAP PO SCH (10:27)
--- NOTE | 2021-07-21 13:43 | Progress Note - Hospitalist ---
Subjective HPI/CC On Admission Date Seen by Provider: Jul 21, 2021 Time Seen by Provider: 13:41 Subjective/Events-last exam Patient reports she passed a lot of gas last night is feeling better today denies shortness of breath or chest pain. Focused Exam Time of Focused Exam: 09:02 Objective Exam Vital Signs Vital Signs Date Time Temp Pulse Resp B/P (MAP) Pulse Ox O2 Delivery O2 Flow Rate FiO2 07/21/21 13:00 69 07/21/21 12:00 100 Room Air 07/21/21 12:00 16 113/64 3.00 07/21/21 08:25 36.4 Capillary Refill : Less Than 3 Seconds General Appearance: No Apparent Distress, Chronically ill, Obese Respiratory: Chest Non Tender, Lungs Clear, Normal Breath Sounds, No Accessory Muscle Use, No Respiratory Distress Cardiovascular: Regular Rate, Rhythm, No Edema, No Gallop, No JVD, No Murmur, Normal Peripheral Pulses Results/Procedures Lab Laboratory Tests 07/21/21 05:15 Patient resulted labs reviewed. Assessment/Plan Assessment and Plan Assess & Plan/Chief Complaint 1. Atrial fibrillation with rapid ventricular response patient status post ASHU followed by cardioversion and in sinus rhythm feeling better. Continue digoxin beta-justien and calcium channel justine per Dr. Burgos. 2. Acute on chronic systolic heart failure due to ischemic heart disease as well as A. fib with RVR compensating as per above. 3. Acute kidney injury aggravated by 1 to and dehydration improving creatinine down to 1.48. 4. Morbid obesity. Critical Care Critically Ill Patient YONATAN MORALES MD Jul 21, 2021 13:43
--- NOTE | 2021-07-21 13:50 | Progress Note - Hospitalist ---
Subjective HPI/CC On Admission Date Seen by Provider: Jul 20, 2021 Time Seen by Provider: 12:00 Subjective/Events-last exam Patient feeling less short of breath denies chest pain reports general fatigue and some mild abdominal distention without pain. Focused Exam Time of Focused Exam: 09:02 Objective Exam Vital Signs Vital Signs Date Time Temp Pulse Resp B/P (MAP) Pulse Ox O2 Delivery O2 Flow Rate FiO2 07/21/21 13:00 69 07/21/21 12:00 100 Room Air 07/21/21 12:00 16 113/64 3.00 07/21/21 08:25 36.4 Capillary Refill : Less Than 3 Seconds General Appearance: No Apparent Distress, Chronically ill, Obese Cardiovascular: No Murmur, Irregularly Irregular, Tachycardia Gastrointestinal: Normal Bowel Sounds, No Organomegaly, No Pulsatile Mass, Non Tender, Soft, Distended (Mild) Results/Procedures Lab Laboratory Tests 07/21/21 05:15 Patient resulted labs reviewed. Assessment/Plan Assessment and Plan Assess & Plan/Chief Complaint 1. Atrial fibrillation with rapid ventricular response With improving rate control after discussion with Dr. Burgos plans to perform ASHU in the morning and if no evidence for blood clots we will proceed with cardioversion. 2. Acute on chronic systolic heart failure due to ischemic heart disease as well as A. fib with RVR compensating as per above. 3. Acute kidney injury aggravated by 1,2 and dehydration improving creatinine down to 1.8. 4. Morbid obesity. Critical Care Critically Ill Patient YONATAN MORALES MD Jul 21, 2021 13:50
[2021-07-21] MEDS: ACETAMINOPHEN 500 MG TAB (TYLENOL) PO PRN (20:02)
--- NOTE | 2021-07-21 21:06 | Diagnostic Imaging Report ---
INDICATION: Abdominal pain. EXAMINATION: Supine images of the abdomen. FINDINGS: Moderate amount of gaseous distention of small and large bowel. There is a paucity of distal colonic gas and no rectal gas is appreciated. There is no evidence of free intraperitoneal gas or pneumatosis. IMPRESSION: Nonspecific bowel gas may reflect ileus. Paucity of distal colonic gas is noted. If there is concern for distal colonic obstruction, CT or contrast enema may be useful. Dictated by: Dictated on workstation # [id number]
[2021-07-21] MEDS: morphine INJ 4 MG/ML 1 ML (VIAL/SYRINGE) IVP PRN (23:09)
[2021-07-22] MEDS: NS IV 1000 ML 1,000 ML IV SCH ×3 (03:15→20:03)
[2021-07-22 05:36] LABS: BASOPHILS % (AUTO) 0 % (0-10); EOSINOPHILS # (AUTO) 0.2 10^3/uL (0.0-0.3); EOSINOPHILS % (AUTO) 2 % (0-10); HEMATOCRIT 35 % (35-52); HEMOGLOBIN 10.8 g/dL (11.5-16.0); LYMPHOCYTES # (AUTO) 0.6 10^3/uL (1.0-4.0); LYMPHOCYTES % (AUTO) 8 % (12-44); MEAN CORPUSCULAR HEMOGLOBIN 30 pg (25-34); MEAN CORPUSCULAR HGB CONC 31 g/dL (32-36); MEAN CORPUSCULAR VOLUME 99 fL (80-99); MEAN PLATELET VOLUME 11.2 fL (9.0-12.2); MONOCYTES # (AUTO) 0.6 10^3/uL (0.0-1.0); MONOCYTES % (AUTO) 8 % (0-12); NEUTROPHILS % (AUTO) 82 % (42-75); PLATELET COUNT 188 10^3/uL (130-400); WHITE BLOOD COUNT 7.3 10^3/uL (4.3-11.0)
[2021-07-22 05:53] LABS: ALBUMIN 3.2 GM/DL (3.2-4.5); POTASSIUM 4.7 MMOL/L (3.6-5.0)
[2021-07-22 05:54] LABS: CALCIUM 8.4 MG/DL (8.5-10.1)
[2021-07-22 05:56] LABS: TOTAL PROTEIN 5.5 GM/DL (6.4-8.2)
[2021-07-22 05:59] LABS: CREATININE SERUM 1.24 MG/DL (0.60-1.30); PHOSPHORUS 3.6 MG/DL (2.3-4.7)
[2021-07-22 06:02] LABS: MAGNESIUM 1.9 MG/DL (1.6-2.4)
[2021-07-22] MEDS: CATHETER FLUSH 10 ML SYR IV SCH ×3 (06:06→20:04)
--- NOTE | 2021-07-22 06:59 | Progress Note - Hospitalist ---
Subjective HPI/CC On Admission Date Seen by Provider: Jul 22, 2021 Time Seen by Provider: 11:00 Subjective/Events-last exam Pt doing okay Rectus sheath hematoma discussed Off her Oxycodone but she doesnt want to do anything other than Ultram EF of 35% AFIB now converted Appreciate Dr. Cantu Review of Systems General: Fatigue Gastrointestinal: Abdominal Pain Focused Exam Time of Focused Exam: 09:02 Objective Exam Vital Signs Vital Signs Date Time Temp Pulse Resp B/P (MAP) Pulse Ox O2 Delivery O2 Flow Rate FiO2 07/23/21 04:05 36.3 Nasal Cannula 2.00 07/23/21 04:00 95 07/23/21 03:00 67 26 Capillary Refill : Less Than 3 Seconds General Appearance: No Apparent Distress, WD/WN, Anxious, Chronically ill, Obes e Respiratory: No Accessory Muscle Use, No Respiratory Distress, Decreased Breath Sounds Cardiovascular: Regular Rate, Rhythm Neurologic/Psychiatric: Alert, Oriented x3 Results/Procedures Lab Laboratory Tests 07/22/21 05:05 Patient resulted labs reviewed. Assessment/Plan Assessment and Plan Assess & Plan/Chief Complaint Assessment: Atrial fibrillation with rapid ventricular response CAD with need for intervention but on hold Acute rectus sheath hematoma Abdominal pain due to hematoma Ischemic cardiomyopathy ejection fraction 35% Obesity Chronic kidney disease Plan: Appreciate cardiology Hold anticoagulants Monitor hemoglobin Critical Care Critically Ill Patient LORENACASEY DO Jul 22, 2021 06:59
--- NOTE | 2021-07-22 07:09 | Diagnostic Imaging Report ---
PROCEDURE: CT abdomen and pelvis without contrast. TECHNIQUE: Multiple contiguous axial images were obtained through the abdomen and pelvis without the use of intravenous contrast. Auto Exposure Controls were utilized during the CT exam to meet ALARA standards for radiation dose reduction. INDICATION: Abdominal pain, obstruction COMPARISON: None FINDINGS: A large right rectus sheath hematoma seen extending from the symphysis superiorly to the right costal margin. There is some fatty stranding within the pelvis compatible with extraperitoneal intra-abdominal involvement. Urinary bladder is decompressed with Barron catheter. There is no free air or free fluid. Moderate sized right-sided effusion with dependent atelectasis is present. There is a nonobstructive stone in the right kidney. Otherwise, the gallbladder, solid organs, bowel, vascular structures are unremarkable. Uterus is intact. Osseous structures are age-appropriate. IMPRESSION: 1. Large rectus sheath hematoma on the right extending from the symphysis superiorly to the right costal margins. Anterior dimension is 6 cm, transverse dimension 7 cm. 2. Right-sided effusion with dependent atelectasis. 3. Nonobstructive stone right kidney. Agree with preliminary report. Dictated by: Dictated on workstation # [id number]
[2021-07-22] MEDS ORDERED: DIATRIZOATE MEGLUM/SODIUM 37% 120 ML (GASTROGRAFIN) PO ONE (07:45)
[2021-07-22] MEDS: dilTIAZem120 MG (CARDIZEM CD) CAP PO SCH (08:31)
[2021-07-22] MEDS: DIGOXIN 0.125 MG (LANOXIN) TAB PO SCH (08:31)
[2021-07-22] MEDS: ASPIRIN E.C. 81 MG (ECOTRIN) TAB PO SCH (08:31)
[2021-07-22] MEDS: FERROUS SULF 325 MG (IRON) TAB PO SCH (08:31)
[2021-07-22] MEDS: FUROSEMIDE 40 MG/4 ML INJ (LASIX) IV SCH (08:31)
[2021-07-22] MEDS: meTOprolol TARTRATE 50 MG (LOPRESSOR) TAB PO SCH ×2 (08:31→20:03)
[2021-07-22] MEDS: morphine INJ 4 MG/ML 1 ML (VIAL/SYRINGE) IVP PRN (08:39)
--- NOTE | 2021-07-22 08:48 | Cardiology Progress Note ---
Subjective Date Seen by Provider: Jul 22, 2021 Time Seen by Provider: 08:44 Subjective/Events-last exam Patient developed abdominal pain, discomfort, had a CT scan showing hematoma. She is very uncomfortable and the right side of her abdomen is tender. There are no bruising. Review of Systems General: No Chills, No Night Sweats, No Fatigue, No Malaise, No Appetite, No Other HEENT: No Head Aches, No Visual Changes, No Eye Pain, No Ear Pain, No Dysphasia, No Sinus Congestion, No Post Nasal Drip, No Sore Throat, No Other Pulmonary: No Dyspnea, No Cough, No Pleuritic Chest Pain, No Other Cardiovascular: No: Chest Pain, Palpitations, Orthopnea, Paroxysmal Noc. Dyspnea, Edema, Lt Headedness, Other Focused Exam Time of Focused Exam: 09:02 Objective-Cardiology Exam Last Set of Vital Signs Vital Signs 07/22/21 07/22/21 06:00 08:15 Temp 35.4 Pulse 61 Resp 24 B/P (MAP) 139/85 Pulse Ox 91 O2 Delivery Nasal Cannula O2 Flow Rate 3.00 I&O Intake and Output 07/22/21 00:00 Intake Total 1200 ml Output Total 5075 ml Balance -3875 ml Intake Oral 1200 ml Output Urine Total 5075 ml General: Alert, Oriented X3, Cooperative, No Acute Distress, Other (Morbidly obese) HEENT: Atraumatic, PERRLA, EOMI, Mucous Memb Moist/[place] Neck: Supple, No LAD Lungs: Clear to Auscultation Heart: Regular Rate, Normal S1, Normal S2 Abdomen: Normal Bowel Sounds, Other (Right lower quadrant tenderness) Extremities: No Clubbing, No Cyanosis, Normal Pulses, Other (1+ pitting edmea BLE. ) Skin: No Rashes, No Significant Lesion Neuro: Normal Speech, Sensation Intact, Cranial Nerves 3-12 NL Psych/Mental Status: Mental Status NL, Mood NL Results Lab Laboratory Tests 07/22/21 05:05 A/P-Cardiology Admission Diagnosis Congestive heart failure, acute on chronic left ventricular systolic dysfunction, ischemic cardiomyopathy Coronary artery disease Atrial fibrillation Acute renal failure Assessment/Plan Congestive heart failure, acute left ventricular systolic dysfunction ischemic in nature, ejection fraction 30 to 35%. Unable to tolerate SUSHIL inhibitor and/or ARB due to to renal failure Paroxysmal atrial fibrillation, underwent ASHU and electrical cardioversion on July 21, 2021, currently in sinus rhythm, maintained on Toprol, Cardizem and Eliquis. Continue to monitor [id number] score of 4, yearly risk of stroke without oral anticoagulation is 4.2%. Currently Eliquis is on hold due to large abdominal hematoma Abdominal pain, CT scan showed large hematoma 6 x 7 cm extending from the symphysis superiorly to the right costal margin, right sided effusion, nonobstructive stone in the right kidney. Probably secondary to Lovenox injection. Having significant pain. Coronary artery disease, cardiac catheterization was done on July 20, 2021 showing tortuous LAD with multiple lesions of severe stenosis at the mid and distal LAD otherwise mild coronary artery disease. Patient having large abdominal hematoma probably secondary to Lovenox injection. She will be unable to tolerate aggressive anticoagulation for stenting of the LAD. Conservative management is recommended at this time. Hypertension, better controlled on current medication, continue to monitor Acute on chronic renal failure, improving slowly, continue to monitor renal function closely Peripheral edema secondary to renal failure and congestive heart failure, using diuretics cautiously. Morbid obesity. BMI 52, discussed weight loss BRENDA SAMSON MD Jul 22, 2021 08:48
[2021-07-22] MEDS: FUROSEMIDE 40 MG (LASIX) TAB PO SCH (09:10)
--- NOTE | 2021-07-22 09:25 | Tele-ICU Progress Note ---
Subjective Date Seen by a Provider: Jul 22, 2021 Time Seen by a Provider: 09:25 Sepsis Event Evaluation Height, Weight, BMI Height: 5'4.00" Weight: 278lbs. oz. 126.668200jw; 52.19 BMI Method:Stated Focused Exam Time of Focused Exam: 09:02 Exam Exam Patient acknowledged, consented, and participated in this virtual visit which was conducted using real time audio/video Vital Signs Date Time Temp Pulse Resp B/P (MAP) Pulse Ox O2 Delivery O2 Flow Rate FiO2 07/22/21 08:15 35.4 07/22/21 07:00 Room Air 07/22/21 06:00 61 24 139/85 91 Nasal Cannula 3.00 07/22/21 05:00 58 24 130/72 94 Nasal Cannula 3.00 07/22/21 04:29 61 23 118/69 94 Nasal Cannula 3.00 07/22/21 04:00 100 Room Air 07/22/21 01:28 64 07/22/21 00:00 100 Room Air 07/22/21 00:00 67 10 139/83 99 Nasal Cannula 3.00 07/21/21 23:00 66 13 135/85 100 Nasal Cannula 3.00 07/21/21 22:40 70 14 99 Nasal Cannula 3.00 07/21/21 22:00 70 28 142/82 97 Room Air 07/21/21 21:00 72 13 103/53 93 Room Air 07/21/21 20:00 100 Room Air 07/21/21 20:00 73 15 138/76 96 Room Air 07/21/21 19:55 36.6 07/21/21 19:00 72 17 130/73 94 Room Air 07/21/21 19:00 72 07/21/21 18:00 66 7 131/70 93 Room Air 07/21/21 17:00 83 27 137/77 95 Room Air 07/21/21 16:00 36.8 07/21/21 16:00 81 25 139/76 95 Room Air 07/21/21 16:00 100 Room Air 07/21/21 15:00 74 13 90 Room Air 07/21/21 14:00 69 9 Room Air 07/21/21 13:00 69 07/21/21 13:00 66 18 117/69 94 Room Air 07/21/21 12:00 100 Room Air 07/21/21 12:00 69 16 113/64 95 Nasal Cannula 3.00 07/21/21 12:00 Room Air 07/21/21 12:00 36.5 07/21/21 11:01 Nasal Cannula 3.00 07/21/21 11:00 77 12 127/86 95 Nasal Cannula 3.00 07/21/21 10:00 76 15 134/84 98 Nasal Cannula 3.00 I & O 07/22/21 07:00 Intake Total 1800 ml Output Total 5075 ml Balance -3275 ml Height & Weight Height: 5'4.00" Weight: 278lbs. oz. 126.001571uv; 52.19 BMI Method:Stated General Appearance: No Apparent Distress, Chronically ill, Obese HEENT: PERRL/EOMI, TMs Normal, Normal ENT Inspection, Pharynx Normal, Moist Mucous Membranes Neck: Full Range of Motion, Normal Inspection, Non Tender, Supple, Carotid Bruit Respiratory: Chest Non Tender, Lungs Clear, Normal Breath Sounds, No Accessory Muscle Use, No Respiratory Distress Cardiovascular: No Murmur, Irregularly Irregular, Tachycardia Capillary Refill: Less Than 3 Seconds Gastrointestinal: normal bowel sounds, non tender, soft Extremity: Normal Capillary Refill, Normal Inspection, Normal Range of Motion, Non Tender, No Calf Tenderness, Pedal Edema (+2-3 pedal edema) Neurologic/Psychiatric: Alert, Oriented x3, No Motor/Sensory Deficits, Normal Mood/Affect Skin: Normal Color, Warm/Dry Lymphatic: No Adenopathy Results Lab Laboratory Tests 07/21/21 05:15 07/22/21 05:05 Assessment/Plan Assessment/Plan (Tele-ICU Physician , Progress Note ) Available chart/ vitals / labs / Images reviewed Video assessment done using teleICU camera, rest of exam as per RN Discussed with RN , EXAM PER RN Events overnight : Afebrile I/O = neg 4L Drips: 100 ns Pressors: , hemodynamically stable Consultants: margy Hospital course: 07/[address] A/P Congestive heart failure, acute left ventricular systolic dysfunction ischemic in nature, ejection fraction 30 to 35%. -as per cards PAF - 07/21 - ASHU and electrical cardioversion - in sinus r - on Toprol, Cardizem- on hold Eliquis. Abdominal pain - 07/21 CT large hematoma 6 x 7 cm - eliquis on hold - pain control RIGHT plural effusion - with CHF , monitor , no dyspena , on RA MADELINE/ CKD - improved with hydration - CT - nonobstructive stone in the right kidney CAD - as per not needs stenting of the LAD. Conservative management until AC can be used ? Morbid obesity. BMI 52, discussed weight loss Lines : (Central Line Necessity Reviewed) Barron: + OG: Nutrition: PO Analgesia: consider norco Anxiety/ delirium VTE Prophylaxis: scd , eliquis on hold Stress Ulcer Prophylaxis: na Glycemic Control: Plans in collaboration with bedside consultants and IM MDs. Discussed with RN to reach out if any questions or concerns A total of 25 minutes of critical care time was devoted to this patient today, required to treat and/or prevent further deterioration of critical care condition ( as above) . DESTIN DAVID MD Jul 22, 2021 09:25
--- NOTE | 2021-07-22 11:49 | Pulmonary Progress Note ---
FELIBERTO CHACON MED STUDENT 07/22/21 1148: Subjective Date Seen by a Provider: Jul 22, 2021 Time Seen by a Provider: 07:35 Subjective/Events-last exam Patient reports abdominal pain on the right quadrants and right flank. Reports having had a CT abdomen/pelvis overnight done. She also endorses some nausea and vomiting. Denies fevers, chills, chest pain, SOB, and diarrhea. Review of Systems General: No Chills, No Night Sweats HEENT: No Head Aches, No Visual Changes Pulmonary: No Dyspnea, No Cough Cardiovascular: Orthopnea, Edema; No: Chest Pain, Palpitations Gastrointestinal: Nausea, Vomiting, Abdominal Pain (Right quadrants and some right flank pain) Genitourinary: No Dysuria, No Frequency; Other (pearl) Musculoskeletal: No: neck pain, back pain Neurological: No: Weakness, Numbness, Change in speech, Confusion Sepsis Event Evaluation Height, Weight, BMI Height: 5'4.00" Weight: 278lbs. oz. 126.531821be; 52.19 BMI Method:Stated Focused Exam Time of Focused Exam: 09:02 Exam Exam Patient acknowledged, consented, and participated in this virtual visit which was conducted using real time audio/video Vital Signs Date Time Temp Pulse Resp B/P (MAP) Pulse Ox O2 Delivery O2 Flow Rate FiO2 07/22/21 08:15 35.4 07/22/21 08:00 Room Air 07/22/21 07:00 Room Air 07/22/21 06:50 60 07/22/21 06:00 61 24 139/85 91 Nasal Cannula 3.00 07/22/21 05:00 58 24 130/72 94 Nasal Cannula 3.00 07/22/21 04:29 61 23 118/69 94 Nasal Cannula 3.00 07/22/21 04:00 100 Room Air 07/22/21 01:28 64 07/22/21 00:00 100 Room Air 07/22/21 00:00 67 10 139/83 99 Nasal Cannula 3.00 07/21/21 23:00 66 13 135/85 100 Nasal Cannula 3.00 07/21/21 22:40 70 14 99 Nasal Cannula 3.00 07/21/21 22:00 70 28 142/82 97 Room Air 07/21/21 21:00 72 13 103/53 93 Room Air 07/21/21 20:00 100 Room Air 07/21/21 20:00 73 15 138/76 96 Room Air 07/21/21 19:55 36.6 07/21/21 19:00 72 17 130/73 94 Room Air 07/21/21 19:00 72 07/21/21 18:00 66 7 131/70 93 Room Air 07/21/21 17:00 83 27 137/77 95 Room Air 07/21/21 16:00 36.8 07/21/21 16:00 81 25 139/76 95 Room Air 07/21/21 16:00 100 Room Air 07/21/21 15:00 74 13 90 Room Air 07/21/21 14:00 69 9 Room Air 07/21/21 13:00 69 07/21/21 13:00 66 18 117/69 94 Room Air 07/21/21 12:00 100 Room Air 07/21/21 12:00 69 16 113/64 95 Nasal Cannula 3.00 07/21/21 12:00 Room Air 07/21/21 12:00 36.5 I & O 07/22/21 07:00 Intake Total 1800 ml Output Total 5075 ml Balance -3275 ml Height & Weight Height: 5'4.00" Weight: 278lbs. oz. 126.515613od; 52.19 BMI Method:Stated General Appearance: No Apparent Distress, Chronically ill, Obese HEENT: PERRL/EOMI, Moist Mucous Membranes Neck: Non Tender, Supple Respiratory: Chest Non Tender, Lungs Clear, Normal Breath Sounds, No Accessory Muscle Use, No Respiratory Distress; No Crackles, No Rhonci, No Wheezing Cardiovascular: Regular Rate, Rhythm, No Murmur, Normal Peripheral Pulses Capillary Refill: Less Than 3 Seconds Peripheral Pulses: 2+ Dorsalis Pedis (R), 2+ Left Dors-Pedis (L), 2+ Radial Pulses (R), 2+ Radial Pulses (L) Gastrointestinal: normal bowel sounds, soft; No abnormal bowel sounds, No distended, No rebound; tenderness (tenderness along right upper and lower quadrant and right flank to deep palpation. ) Extremity: Normal Capillary Refill, No Calf Tenderness, Pedal Edema (+1 pedal edema) Neurologic/Psychiatric: Alert, Oriented x3, No Motor/Sensory Deficits, Normal Mood/Affect Skin: Normal Color, Warm/Dry Lymphatic: No Adenopathy Results Lab Laboratory Tests 07/21/21 05:15 07/22/21 05:05 Assessment/Plan Assessment/Plan New onset atrial fibrillation with RVR -resolved -cardiology following -eliquis on hold -toprolol, cardizem, and digoxin Acute CHF -echocardiogram showed EF 30-35% -lasix 40mg q day S/P cardiac cath - showing tortuous LAD with multiple lesions of severe stenosis at the mid and distal LAD otherwise mild coronary artery disease. -conservative management at this time, unable tolerate anticoag due to hematoma at this time S/P ASHU and cardioversion 07-21 -remains in NSR -continue to monitor Rectus sheath hematoma on Right side -CT abd/pelvis: hematoma 6 x 7 cm extending from the symphysis superiorly to the right costal margin, right sided effusion, nonobstructive stone in the right kidney. -eliquis on hold to this HTN -continue to monitor Acute on chronic renal failure -creatinine 1.24 trending down -continue to monitor Obesity Peripheral edema -diuretics and elevate legs DESTIN DAVID MD 07/23/21 1242: Supervisory-Addendum Brief Verification & Attestation Participated in pt care: history, MDM, physical Personally performed: history, MDM, supervision of care Care discussed with: Medical Student Procedures: n/a A medical student performed and documented this service. I reviewed all information documented by the medical student . Medical student performed patients physical exam . Medical decision making was done during tele-rounds with this medical student and a bedside RN . Please see my notes for details /clarification. FELIBERTO CHACON MED STUDENT Jul 22, 2021 11:48 DESTIN DAVID MD Jul 23, 2021 12:42
--- NOTE | 2021-07-22 14:21 | Anesthesia-General Post-Op ---
MAC Patient Condition Mental Status/LOC: Same as Preop Cardiovascular: Satisfactory Nausea/Vomiting: Absent Respiratory: Satisfactory Pain: Controlled Complications: Absent Post Op Complications Complications None Follow Up Care/Instructions Patient Instructions None needed. Anesthesiology Discharge Order Discharge Order Patient is doing well, no complaints, stable vital signs, no apparent adverse anesthesia problems. EDMUND DANIEL DO Jul 22, 2021 14:21
[2021-07-22] MEDS: ACETAMINOPHEN 500 MG TAB (TYLENOL) PO PRN (20:03)
[2021-07-23] MEDS: ACETAMINOPHEN 500 MG TAB (TYLENOL) PO PRN ×3 (04:10→23:53)
[2021-07-23] MEDS: CATHETER FLUSH 10 ML SYR IV SCH ×3 (05:02→22:06)
[2021-07-23 05:26] LABS: BASOPHILS % (AUTO) 0 % (0-10); EOSINOPHILS # (AUTO) 0.6 10^3/uL (0.0-0.3); EOSINOPHILS % (AUTO) 6 % (0-10); HEMATOCRIT 31 % (35-52); HEMOGLOBIN 9.7 g/dL (11.5-16.0); LYMPHOCYTES # (AUTO) 0.7 10^3/uL (1.0-4.0); LYMPHOCYTES % (AUTO) 7 % (12-44); MEAN CORPUSCULAR HEMOGLOBIN 31 pg (25-34); MEAN CORPUSCULAR HGB CONC 32 g/dL (32-36); MEAN CORPUSCULAR VOLUME 98 fL (80-99); MEAN PLATELET VOLUME 11.1 fL (9.0-12.2); MONOCYTES # (AUTO) 0.8 10^3/uL (0.0-1.0); MONOCYTES % (AUTO) 9 % (0-12); NEUTROPHILS % (AUTO) 77 % (42-75); PLATELET COUNT 166 10^3/uL (130-400); WHITE BLOOD COUNT 9.1 10^3/uL (4.3-11.0)
[2021-07-23] MEDS: NS IV 1000 ML 1,000 ML IV SCH (05:32)
[2021-07-23 05:35] LABS: ALBUMIN 2.9 GM/DL (3.2-4.5); POTASSIUM 5.2 MMOL/L (3.6-5.0)
[2021-07-23 05:36] LABS: CALCIUM 8.3 MG/DL (8.5-10.1)
[2021-07-23 05:38] LABS: TOTAL PROTEIN 5.1 GM/DL (6.4-8.2)
[2021-07-23 05:41] LABS: PHOSPHORUS 3.7 MG/DL (2.3-4.7)
[2021-07-23 05:44] LABS: MAGNESIUM 1.8 MG/DL (1.6-2.4)
[2021-07-23] MEDS: DIGOXIN 0.125 MG (LANOXIN) TAB PO SCH (08:37)
[2021-07-23] MEDS: ASPIRIN E.C. 81 MG (ECOTRIN) TAB PO SCH (08:37)
[2021-07-23] MEDS: FERROUS SULF 325 MG (IRON) TAB PO SCH (08:37)
[2021-07-23] MEDS: meTOprolol TARTRATE 50 MG (LOPRESSOR) TAB PO SCH ×2 (08:37→19:31)
[2021-07-23] MEDS: FUROSEMIDE 40 MG (LASIX) TAB PO SCH (08:37)
[2021-07-23] MEDS: dilTIAZem120 MG (CARDIZEM CD) CAP PO SCH (08:37)
--- NOTE | 2021-07-23 08:49 | Pulmonary Progress Note ---
FELIBERTO CHACON MED STUDENT 07/23/21 0849: Subjective Date Seen by a Provider: Jul 23, 2021 Time Seen by a Provider: 07:40 Subjective/Events-last exam Patient reports sleeping well overnight. Complains of some abdominal tenderness still, but reports is improved. Denies chest pain, SOB, fluttering, and dizzine ss. Tolerating po intake well. Reports only sitting in chair for 45 minutes yesterday due to pain. Review of Systems General: No Chills, No Night Sweats HEENT: No Head Aches, No Visual Changes Pulmonary: No Dyspnea, No Cough, No Pleuritic Chest Pain Cardiovascular: Edema; No: Chest Pain, Palpitations Gastrointestinal: Abdominal Pain (right abdominal wall pain, minimal right f lank pain per patient); No: Nausea, Vomiting Genitourinary: No Dysuria, No Frequency; Other (pearl) Musculoskeletal: No: neck pain Neurological: No: Weakness, Numbness, Change in speech, Confusion Sepsis Event Evaluation Height, Weight, BMI Height: 5'4.00" Weight: 278lbs. oz. 126.960584oj; 52.19 BMI Method:Stated Focused Exam Time of Focused Exam: 09:02 Exam Exam Patient acknowledged, consented, and participated in this virtual visit which was conducted using real time audio/video Vital Signs Date Time Temp Pulse Resp B/P (MAP) Pulse Ox O2 Delivery O2 Flow Rate FiO2 07/23/21 08:00 36.4 07/23/21 06:00 64 11 124/53 97 Nasal Cannula 2.00 07/23/21 05:00 60 20 130/58 97 Nasal Cannula 2.00 07/23/21 04:05 36.3 Nasal Cannula 2.00 07/23/21 04:00 95 Nasal Cannula 2.00 07/23/21 04:00 67 12 127/59 94 Nasal Cannula 2.00 07/23/21 03:00 67 26 132/58 98 Nasal Cannula 2.00 07/23/21 02:00 62 15 117/53 94 Nasal Cannula 2.00 07/23/21 01:00 64 07/23/21 01:00 64 13 117/62 93 Nasal Cannula 2.00 07/23/21 00:00 65 24 123/61 93 Nasal Cannula 2.00 07/22/21 23:35 95 Nasal Cannula 07/22/21 23:35 36.0 Nasal Cannula 2.00 07/22/21 23:00 62 13 133/63 96 Nasal Cannula 2.00 07/22/21 22:00 66 18 121/64 95 Nasal Cannula 2.00 07/22/21 21:00 64 15 132/64 96 Nasal Cannula 2.00 07/22/21 20:10 36.2 07/22/21 20:08 Nasal Cannula 2.00 07/22/21 20:02 73 19 114/73 97 Room Air 07/22/21 19:20 92 Room Air 07/22/21 19:00 71 07/22/21 19:00 Room Air 07/22/21 19:00 71 9 120/73 93 Room Air 07/22/21 18:00 66 28 133/74 92 Room Air 07/22/21 17:00 62 25 123/62 90 Room Air 07/22/21 16:00 61 18 103/61 87 Room Air 07/22/21 16:00 Room Air 07/22/21 15:00 60 22 115/63 90 Room Air 07/22/21 14:00 59 17 126/64 92 Room Air 07/22/21 13:00 58 20 117/66 90 Room Air 07/22/21 12:34 62 07/22/21 12:30 36.2 07/22/21 12:00 59 18 124/68 88 Room Air 07/22/21 12:00 Room Air 07/22/21 11:00 62 19 126/76 91 Room Air 07/22/21 10:00 58 17 135/86 89 Room Air 07/22/21 09:00 61 12 141/73 93 Room Air I & O 07/23/21 07:00 Intake Total 3465 ml Output Total 4275 ml Balance -810 ml Height & Weight Height: 5'4.00" Weight: 278lbs. oz. 126.801634lg; 52.19 BMI Method:Stated General Appearance: No Apparent Distress, Chronically ill, Obese HEENT: PERRL/EOMI, Moist Mucous Membranes Neck: Non Tender, Supple Respiratory: Chest Non Tender, Lungs Clear, No Accessory Muscle Use, No Respiratory Distress, Decreased Breath Sounds Cardiovascular: Regular Rate, Rhythm, Normal Peripheral Pulses Capillary Refill: Less Than 3 Seconds Peripheral Pulses: 2+ Dorsalis Pedis (R), 2+ Left Dors-Pedis (L), 2+ Radial Pulses (R), 2+ Radial Pulses (L) Gastrointestinal: normal bowel sounds, soft; No abnormal bowel sounds, No distended, No rebound; tenderness (tenderness along right upper and lower quadrant and right flank to palpation. 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 -conservative management at this time, unable tolerate anticoag due to hematoma at this time S/P ASHU and cardioversion 07-21 -remains in NSR -continue to monitor Rectus sheath hematoma on Right side -CT abd/pelvis: hematoma 6 x 7 cm extending from the symphysis superiorly to the right costal margin, right sided effusion, nonobstructive stone in the right kidney. -eliquis on hold to this Hyperkalemia -K 5.2 today -continue to monitor Anemia -hgb 9.7, continue to monitor HTN -continue to monitor Acute on chronic renal failure -improved -creatinine 1.0 trending down -continue to monitor -SL fluids Obesity Peripheral edema -diuretics and elevate legs DESTIN DAVID MD 07/23/21 1242: Supervisory-Addendum Brief Verification & Attestation Participated in pt care: history, MDM, physical Personally performed: history, MDM, supervision of care Care discussed with: Medical Student Procedures: n/a A medical student performed and documented this service. I reviewed all information documented by the medical student . Medical student performed patients physical exam . Medical decision making was done during tele-rounds with this medical student and a bedside RN . Please see my notes for details /clarification. FELIBERTO CHACON MED STUDENT Jul 23, 2021 08:49 DESTIN DAVID MD Jul 23, 2021 12:42
--- NOTE | 2021-07-23 10:36 | Progress Note - Hospitalist ---
Subjective HPI/CC On Admission Date Seen by Provider: Jul 23, 2021 Time Seen by Provider: 11:00 Subjective/Events-last exam Pt about the same Rectus sheath hematoma pain issue discussed Noncompliant with CPAP for RAAD treatment Will provide supportive care Review of Systems Gastrointestinal: Abdominal Pain Focused Exam Time of Focused Exam: 09:02 Objective Exam Vital Signs Vital Signs Date Time Temp Pulse Resp B/P (MAP) Pulse Ox O2 Delivery O2 Flow Rate FiO2 07/24/21 04:05 Nasal Cannula 2.00 07/24/21 04:00 61 22 127/58 98 07/24/21 00:17 36.6 Capillary Refill : Less Than 3 Seconds General Appearance: No Apparent Distress, WD/WN, Chronically ill, Obese Respiratory: Lungs Clear Cardiovascular: Regular Rate, Rhythm Neurologic/Psychiatric: Alert, Oriented x3 Results/Procedures Lab Laboratory Tests 07/24/21 04:15 Patient resulted labs reviewed. Assessment/Plan Assessment and Plan Assess & Plan/Chief Complaint Assessment: Atrial fibrillation with rapid ventricular response CAD with need for intervention but on hold Acute rectus sheath hematoma Abdominal pain due to hematoma Ischemic cardiomyopathy ejection fraction 35% Obesity Chronic kidney disease Plan: Appreciate cardiology Hold anticoagulants Monitor hemoglobin 07/23/2021: Supportive care Monitor hemoglobin Treat pain Critical Care Critically Ill Patient CASEY CARRILLO DO Jul 23, 2021 10:36
--- NOTE | 2021-07-23 10:55 | Tele-ICU Progress Note ---
Subjective Date Seen by a Provider: Jul 23, 2021 Time Seen by a Provider: 10:02 Sepsis Event Evaluation Height, Weight, BMI Height: 5'4.00" Weight: 278lbs. oz. 126.319947ov; 52.19 BMI Method:Stated Focused Exam Time of Focused Exam: 09:02 Exam Exam Patient acknowledged, consented, and participated in this virtual visit which was conducted using real time audio/video Vital Signs Date Time Temp Pulse Resp B/P (MAP) Pulse Ox O2 Delivery O2 Flow Rate FiO2 07/23/21 08:00 Room Air 07/23/21 08:00 36.4 07/23/21 07:00 70 07/23/21 06:00 64 11 124/53 97 Nasal Cannula 2.00 07/23/21 05:00 60 20 130/58 97 Nasal Cannula 2.00 07/23/21 04:05 36.3 Nasal Cannula 2.00 07/23/21 04:00 95 Nasal Cannula 2.00 07/23/21 04:00 67 12 127/59 94 Nasal Cannula 2.00 07/23/21 03:00 67 26 132/58 98 Nasal Cannula 2.00 07/23/21 02:00 62 15 117/53 94 Nasal Cannula 2.00 07/23/21 01:00 64 07/23/21 01:00 64 13 117/62 93 Nasal Cannula 2.00 07/23/21 00:00 65 24 123/61 93 Nasal Cannula 2.00 07/22/21 23:35 95 Nasal Cannula 07/22/21 23:35 36.0 Nasal Cannula 2.00 07/22/21 23:00 62 13 133/63 96 Nasal Cannula 2.00 07/22/21 22:00 66 18 121/64 95 Nasal Cannula 2.00 07/22/21 21:00 64 15 132/64 96 Nasal Cannula 2.00 07/22/21 20:10 36.2 07/22/21 20:08 Nasal Cannula 2.00 07/22/21 20:02 73 19 114/73 97 Room Air 07/22/21 19:20 92 Room Air 07/22/21 19:00 71 07/22/21 19:00 Room Air 07/22/21 19:00 71 9 120/73 93 Room Air 07/22/21 18:00 66 28 133/74 92 Room Air 07/22/21 17:00 62 25 123/62 90 Room Air 07/22/21 16:00 61 18 103/61 87 Room Air 07/22/21 16:00 Room Air 07/22/21 15:00 60 22 115/63 90 Room Air 07/22/21 14:00 59 17 126/64 92 Room Air 07/22/21 13:00 58 20 117/66 90 Room Air 07/22/21 12:34 62 07/22/21 12:30 36.2 07/22/21 12:00 59 18 124/68 88 Room Air 07/22/21 12:00 Room Air 07/22/21 11:00 62 19 126/76 91 Room Air I & O 07/23/21 07:00 Intake Total 3465 ml Output Total 4275 ml Balance -810 ml Height & Weight Height: 5'4.00" Weight: 278lbs. oz. 126.003308lt; 52.19 BMI Method:Stated General Appearance: No Apparent Distress, Chronically ill, Obese HEENT: PERRL/EOMI, Moist Mucous Membranes Neck: Non Tender, Supple Respiratory: Chest Non Tender, Lungs Clear, No Accessory Muscle Use, No Respiratory Distress, Decreased Breath Sounds Cardiovascular: Regular Rate, Rhythm, Normal Peripheral Pulses Capillary Refill: Less Than 3 Seconds Peripheral Pulses: 2+ Dorsalis Pedis (R), 2+ Left Dors-Pedis (L), 2+ Radial Pulses (R), 2+ Radial Pulses (L) Gastrointestinal: normal bowel sounds, soft; No abnormal bowel sounds, No distended, No rebound; tenderness (tenderness along right upper and lower quadrant and right flank to palpation. 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 A/P Congestive heart failure, acute left ventricular systolic dysfunction ischemic in nature, ejection fraction 30 to 35%. -as per cards PAF - 07/21 - ASHU and electrical cardioversion - in sinus now - on Toprol, Cardizem- on hold Eliquis. Rectus sheath hematoma on Right side- 07/21 CT - 6 x 7 cm - eliquis on hold - pain control Anemia - due to abive RIGHT plural effusion - with CHF , monitor , no dyspena , on RA MADELINE/ CKD - improved with hydration - stop IVF - CT - nonobstructive stone in the right kidney Mild hyperkalemia - monitor CAD - as per not needs stenting of the LAD. Conservative management until AC can be used ? Morbid obesity. BMI 52 RAAD - by observation in ICU , severe Lines : (Central Line Necessity Reviewed) Barron: + OG: Nutrition: PO Analgesia: consider norco Anxiety/ delirium VTE Prophylaxis: scd , eliquis on hold Stress Ulcer Prophylaxis: na Glycemic Control: Plans in collaboration with bedside consultants and IM MDs. Discussed with RN to reach out if any questions or concerns A total of 35 minutes of critical care time was devoted to this patient today, required to treat and/or prevent further deterioration of critical care condition ( as above) . DESTIN DAVID MD Jul 23, 2021 10:55
--- NOTE | 2021-07-23 12:23 | Cardiology Progress Note ---
Subjective Date Seen by Provider: Jul 23, 2021 Time Seen by Provider: 12:21 Subjective/Events-last exam Patient was seen at bedside, still having abdominal pain and discomfort mainly abdominal discomfort Review of Systems General: No Chills, No Night Sweats, No Fatigue, No Malaise, No Appetite, No Other HEENT: No Head Aches, No Visual Changes, No Eye Pain, No Ear Pain, No Dysphasia, No Sinus Congestion, No Post Nasal Drip, No Sore Throat, No Other Pulmonary: No Dyspnea, No Cough, No Pleuritic Chest Pain, No Other Cardiovascular: No: Chest Pain, Palpitations, Orthopnea, Paroxysmal Noc. Dyspnea, Edema, Lt Headedness, Other Focused Exam Time of Focused Exam: 09:02 Objective-Cardiology Exam Last Set of Vital Signs Vital Signs 07/23/21 11:00 Pulse 65 Resp 17 B/P (MAP) 135/69 Pulse Ox 91 O2 Delivery Nasal Cannula O2 Flow Rate 2.00 I&O Intake and Output 07/23/21 00:00 Intake Total 2740 ml Output Total 4800 ml Balance -2060 ml Intake Oral 1340 ml IV Total 1000 ml Tube Feeding 400 ml Output Urine Total 4800 ml General: Alert, Oriented X3, Cooperative, No Acute Distress, Other (Morbidly obese) HEENT: Atraumatic, PERRLA, EOMI, Mucous Memb Moist/[place] Neck: Supple, No LAD Lungs: Clear to Auscultation Heart: Regular Rate, Normal S1, Normal S2 Abdomen: Normal Bowel Sounds, Other (Right lower quadrant tenderness) Extremities: No Clubbing, No Cyanosis, Normal Pulses, Other (1+ pitting edmea BLE. ) Skin: No Rashes, No Significant Lesion Neuro: Normal Speech, Sensation Intact, Cranial Nerves 3-12 NL Psych/Mental Status: Mental Status NL, Mood NL Results Lab Laboratory Tests 07/23/21 05:10 A/P-Cardiology Admission Diagnosis Congestive heart failure, acute on chronic left ventricular systolic dysfunction, ischemic cardiomyopathy Coronary artery disease Atrial fibrillation Acute renal failure Assessment/Plan Congestive heart failure, acute left ventricular systolic dysfunction ischemic in nature, ejection fraction 30 to 35%. Unable to tolerate SUSHIL inhibitor and/or ARB due to to renal failure Paroxysmal atrial fibrillation, underwent ASHU and electrical cardioversion on July 21, 2021, currently in sinus rhythm, maintained on Toprol, Cardizem and Eliquis. Continue to monitor [id number] score of 4, yearly risk of stroke without oral anticoagulation is 4.2%. Currently Eliquis is on hold due to large abdominal hematoma Abdominal pain, CT scan showed large hematoma 6 x 7 cm extending from the symphysis superiorly to the right costal margin, right sided effusion, nonobstructive stone in the right kidney. Probably secondary to Lovenox injection. Having significant pain. Coronary artery disease, cardiac catheterization was done on July 20, 2021 showing tortuous LAD with multiple lesions of severe stenosis at the mid and distal LAD otherwise mild coronary artery disease. Patient having large abdominal hematoma probably secondary to Lovenox injection. She will be unable to tolerate aggressive anticoagulation for stenting of the LAD. Conservative management is recommended at this time. Hypertension, better controlled on current medication, continue to monitor Acute on chronic renal failure, improving slowly, continue to monitor renal function closely Peripheral edema secondary to renal failure and congestive heart failure, using diuretics cautiously. Morbid obesity. BMI 52, discussed weight loss BRENDA SAMSON MD Jul 23, 2021 12:23
[2021-07-24 04:37] LABS: BASOPHILS % (AUTO) 0 % (0-10); EOSINOPHILS # (AUTO) 0.5 10^3/uL (0.0-0.3); EOSINOPHILS % (AUTO) 6 % (0-10); HEMATOCRIT 29 % (35-52); HEMOGLOBIN 8.9 g/dL (11.5-16.0); LYMPHOCYTES # (AUTO) 0.9 10^3/uL (1.0-4.0); LYMPHOCYTES % (AUTO) 12 % (12-44); MEAN CORPUSCULAR HEMOGLOBIN 31 pg (25-34); MEAN CORPUSCULAR HGB CONC 31 g/dL (32-36); MEAN CORPUSCULAR VOLUME 98 fL (80-99); MEAN PLATELET VOLUME 10.9 fL (9.0-12.2); MONOCYTES # (AUTO) 0.8 10^3/uL (0.0-1.0); MONOCYTES % (AUTO) 10 % (0-12); NEUTROPHILS # (AUTO) 5.7 10^3/uL (1.8-7.8); NEUTROPHILS % (AUTO) 72 % (42-75); PLATELET COUNT 190 10^3/uL (130-400)
[2021-07-24 04:55] LABS: ALBUMIN 2.8 GM/DL (3.2-4.5)
[2021-07-24 04:56] LABS: POTASSIUM 4.4 MMOL/L (3.6-5.0)
[2021-07-24 04:57] LABS: CALCIUM 8.6 MG/DL (8.5-10.1)
[2021-07-24 05:01] LABS: PHOSPHORUS 3.1 MG/DL (2.3-4.7)
[2021-07-24 05:02] LABS: CREATININE SERUM 1.06 MG/DL (0.60-1.30)
[2021-07-24 05:05] LABS: MAGNESIUM 1.8 MG/DL (1.6-2.4)
[2021-07-24] MEDS ORDERED: KCL 20 MEQ TAB (K-DUR) PO SCH (06:00)
[2021-07-24] MEDS ORDERED: MAGNESIUM 1 GM/100 ML IVPB 100 ML IV SCH (06:00)
[2021-07-24] MEDS ORDERED: POTASSIUM CL 10MEQ/50ML IVPB 50 ML IV SCH (06:00)
[2021-07-24] MEDS: CATHETER FLUSH 10 ML SYR IV SCH ×3 (06:28→21:32)
[2021-07-24] MEDS: FUROSEMIDE 40 MG (LASIX) TAB PO SCH (08:28)
[2021-07-24] MEDS: ASPIRIN E.C. 81 MG (ECOTRIN) TAB PO SCH (08:28)
[2021-07-24] MEDS: DIGOXIN 0.125 MG (LANOXIN) TAB PO SCH (08:28)
[2021-07-24] MEDS: dilTIAZem120 MG (CARDIZEM CD) CAP PO SCH (08:28)
[2021-07-24] MEDS: meTOprolol TARTRATE 50 MG (LOPRESSOR) TAB PO SCH ×2 (08:28→21:31)
[2021-07-24] MEDS: FERROUS SULF 325 MG (IRON) TAB PO SCH (08:28)
--- NOTE | 2021-07-24 09:09 | Cardiology Progress Note ---
Subjective Date Seen by Provider: Jul 24, 2021 Time Seen by Provider: 09:07 Subjective/Events-last exam Patient is laying down in bed, still having abdominal wall pain. No chest pain Review of Systems General: No Chills, No Night Sweats, No Fatigue, No Malaise, No Appetite, No Other HEENT: No Head Aches, No Visual Changes, No Eye Pain, No Ear Pain, No Dysphasia, No Sinus Congestion, No Post Nasal Drip, No Sore Throat, No Other Pulmonary: No Dyspnea, No Cough, No Pleuritic Chest Pain, No Other Cardiovascular: No: Chest Pain, Palpitations, Orthopnea, Paroxysmal Noc. Dyspnea, Edema, Lt Headedness, Other Focused Exam Time of Focused Exam: 09:02 Objective-Cardiology Exam Last Set of Vital Signs Vital Signs 07/24/21 07/24/21 07/24/21 06:00 08:00 08:30 Temp 35.8 Pulse 69 Resp 11 B/P (MAP) 142/65 Pulse Ox 97 O2 Delivery Room Air O2 Flow Rate 2.00 I&O Intake and Output 07/24/21 00:00 Intake Total 2425 ml Output Total 3675 ml Balance -1250 ml Intake Oral 1425 ml IV Total 1000 ml Output Urine Total 3675 ml General: Alert, Oriented X3, Cooperative, No Acute Distress, Other (Morbidly obese) HEENT: Atraumatic, PERRLA, EOMI, Mucous Memb Moist/[place] Neck: Supple, No LAD Lungs: Clear to Auscultation Heart: Regular Rate, Normal S1, Normal S2 Abdomen: Normal Bowel Sounds, Other (Right flank tenderness, mild bruising on the right lower quadrant) Extremities: No Clubbing, No Cyanosis, Normal Pulses, Other (1+ pitting edmea BLE. ) Skin: No Rashes, No Significant Lesion Neuro: Normal Speech, Sensation Intact, Cranial Nerves 3-12 NL Psych/Mental Status: Mental Status NL, Mood NL Results Lab Laboratory Tests 07/24/21 04:15 A/P-Cardiology Admission Diagnosis Congestive heart failure, acute on chronic left ventricular systolic dysfunction, ischemic cardiomyopathy Coronary artery disease Atrial fibrillation Acute renal failure Assessment/Plan Congestive heart failure, acute left ventricular systolic dysfunction ischemic in nature, ejection fraction 30 to 35%. Unable to tolerate SUSHIL inhibitor and/or ARB due to to renal failure Paroxysmal atrial fibrillation, underwent ASHU and electrical cardioversion on July 21, 2021, currently in sinus rhythm, maintained on Toprol, Cardizem. Patient was on Eliquis and it was held due to large abdominal wall hematoma [id number] score of 4, yearly risk of stroke without oral anticoagulation is 4.2%. Currently Eliquis is on hold due to large abdominal hematoma Abdominal pain, CT scan showed large hematoma 6 x 7 cm extending from the symphysis superiorly to the right costal margin, right sided effusion, nonobstructive stone in the right kidney. Probably secondary to Lovenox injection. Having significant pain. Coronary artery disease, cardiac catheterization was done on July 20, 2021 showing tortuous LAD with multiple lesions of severe stenosis at the mid and distal LAD otherwise mild coronary artery disease. Patient having large a bdominal hematoma probably secondary to Lovenox injection. She will be unable to tolerate aggressive anticoagulation for stenting of the LAD. Conservative management is recommended at this time. Hypertension, better controlled on current medication, continue to monitor Acute on chronic renal failure, improving slowly, continue to monitor renal function closely Peripheral edema secondary to renal failure and congestive heart failure, using diuretics cautiously. Morbid obesity. BMI 52, discussed weight loss BRENDA SAMSON MD Jul 24, 2021 09:09
--- NOTE | 2021-07-24 10:23 | Pulmonary Progress Note ---
Subjective Date Seen by a Provider: Jul 24, 2021 Time Seen by a Provider: 07:00 Subjective/Events-last exam Nicolle was on 1.5 L at night but states she does not need oxygen at daytime. She complains of continued abdominal pain from her rectus sheath hematoma but no new pain, no new fevers or chills, no nausea, vomiting, or diarrhea. Sepsis Event Evaluation Height, Weight, BMI Height: 5'4.00" Weight: 278lbs. oz. 126.466465mp; 52.19 BMI Method:Stated Focused Exam Time of Focused Exam: 09:02 Exam Exam Patient acknowledged, consented, and participated in this virtual visit which was conducted using real time audio/video Vital Signs Date Time Temp Pulse Resp B/P (MAP) Pulse Ox O2 Delivery O2 Flow Rate FiO2 07/24/21 08:30 35.8 07/24/21 08:00 Room Air 07/24/21 07:00 Room Air 07/24/21 07:00 70 07/24/21 06:00 69 11 142/65 97 Nasal Cannula 2.00 07/24/21 05:00 63 8 140/63 100 Nasal Cannula 2.00 07/24/21 04:05 Nasal Cannula 2.00 07/24/21 04:00 61 22 127/58 98 Nasal Cannula 2.00 07/24/21 03:00 55 24 114/51 100 Nasal Cannula 2.00 07/24/21 02:00 61 11 125/51 96 Nasal Cannula 2.00 07/24/21 01:00 63 07/24/21 01:00 63 25 116/39 96 Nasal Cannula 2.00 07/24/21 00:17 36.6 Nasal Cannula 2.00 07/24/21 00:16 Nasal Cannula 2.00 07/24/21 00:00 68 15 130/53 98 Nasal Cannula 2.00 07/23/21 23:00 69 12 131/55 99 Nasal Cannula 2.00 07/23/21 22:00 68 15 128/55 99 Nasal Cannula 2.00 07/23/21 21:00 65 15 120/59 100 Nasal Cannula 2.00 07/23/21 20:00 66 15 132/108 100 Nasal Cannula 2.00 07/23/21 19:38 36.8 Nasal Cannula 2.00 07/23/21 19:28 80 21 125/97 Nasal Cannula 2.00 07/23/21 19:25 Nasal Cannula 2.00 07/23/21 19:00 80 07/23/21 19:00 80 16 97/74 94 Nasal Cannula 2.00 07/23/21 18:00 74 19 124/67 94 Nasal Cannula 2.00 07/23/21 17:00 73 34 141/87 90 Nasal Cannula 2.00 07/23/21 16:30 36.6 07/23/21 16:00 68 12 137/58 91 Nasal Cannula 2.00 07/23/21 16:00 Room Air 07/23/21 15:00 75 21 121/112 92 Nasal Cannula 2.00 07/23/21 14:05 66 12 126/66 93 Nasal Cannula 2.00 07/23/21 13:00 66 07/23/21 13:00 66 18 143/72 95 Nasal Cannula 2.00 07/23/21 12:30 35.6 07/23/21 12:00 Room Air 07/23/21 12:00 70 17 138/62 92 Nasal Cannula 2.00 07/23/21 11:00 65 17 135/69 91 Nasal Cannula 2.00 I & O 07/24/21 07:00 Intake Total 1350 ml Output Total 3600 ml Balance -2250 ml Height & Weight Height: 5'4.00" Weight: 278lbs. oz. 126.536903lo; 52.19 BMI Method:Stated General Appearance: No Apparent Distress, WD/WN, Chronically ill, Obese HEENT: PERRL/EOMI, Moist Mucous Membranes Neck: Non Tender, Supple Respiratory: Lungs Clear, No Accessory Muscle Use, No Respiratory Distress, Decreased Breath Sounds (at bases) Cardiovascular: Regular Rate, Rhythm Capillary Refill: Less Than 3 Seconds Peripheral Pulses: 2+ Dorsalis Pedis (R), 2+ Left Dors-Pedis (L), 2+ Radial Pulses (R), 2+ Radial Pulses (L) Gastrointestinal: normal bowel sounds, soft; No abnormal bowel sounds, No di stended, No rebound; tenderness (tenderness along right upper and lower quadrant and right flank to palpation. ) Extremity: Normal Capillary Refill, No Calf Tenderness, Pedal Edema (+1 pedal edema bilaterally) Neurologic/Psychiatric: Alert, Oriented x3 Skin: Normal Color, Warm/Dry Lymphatic: No Adenopathy Results Lab Laboratory Tests 07/23/21 05:10 07/24/21 04:15 Assessment/Plan Assessment/Plan Congestive heart failure, acute left ventricular systolic dysfunction ischemic in nature, ejection fraction 30 to 35%. -Cardiology is following. On Lasix. -per their note, holding off on interventions at this time due to rectus sheath hematoma PAF - 07/21 - ASHU and electrical cardioversion - in sinus now - on Toprol, PO Cardizem- on hold Eliquis. Rectus sheath hematoma on Right side- 07/21 CT - 6 x 7 cm - eliquis on hold - pain control Anemia d/t hematoma -HGB dropped from 10.8 yesterday to 9.7 today -continue to monitor RIGHT plural effusion - with CHF , monitor , no dyspena , on RA MADELINE/ CKD, improved - creatinine 1.06 today, 1.00 yesterday. - improved with hydration - IVF held since yesterday morning - CT - nonobstructive stone in the right kidney Mild hyperkalemia, resolved -was 5.2 is now 4.4 - monitor for changes CAD - as per note needs stenting of the LAD. Conservative management for now per cardiology Morbid obesity. BMI 52 RAAD - by observation in ICU , severe -on NC at night at 1.5 L Lines : Barron, 2x peripheral IVs in left arm VTE Prophylaxis: scd , eliquis on hold KARINA FOX MED STUDENT Jul 24, 2021 10:23
[2021-07-25] MEDS: CATHETER FLUSH 10 ML SYR IV SCH ×2 (05:32→14:10)
--- NOTE | 2021-07-25 06:05 | Progress Note - Hospitalist ---
Subjective HPI/CC On Admission Date Seen by Provider: Jul 24, 2021 Time Seen by Provider: 11:00 Subjective/Events-last exam Missed note yesterday inadvertently Pt doing really well Minimal motivation DC Catheter Med-Surg transfer Desperately needs CPAP for undiagnosed RAAD Review of Systems General: Fatigue, Malaise Focused Exam Time of Focused Exam: 09:02 Objective Exam Vital Signs Vital Signs Date Time Temp Pulse Resp B/P (MAP) Pulse Ox O2 Delivery O2 Flow Rate FiO2 07/25/21 04:00 36.4 83 18 104/57 94 Room Air 07/24/21 06:00 2.00 Capillary Refill : Less Than 3 Seconds General Appearance: No Apparent Distress, WD/WN, Chronically ill Respiratory: Lungs Clear, Normal Breath Sounds Cardiovascular: Regular Rate, Rhythm Neurologic/Psychiatric: Alert, Oriented x3 Results/Procedures Lab Patient resulted labs reviewed. Assessment/Plan Assessment and Plan Assess & Plan/Chief Complaint Assessment: Atrial fibrillation with rapid ventricular response CAD with need for intervention but on hold Acute rectus sheath hematoma Abdominal pain due to hematoma Ischemic cardiomyopathy ejection fraction 35% Obesity Chronic kidney disease Plan: Appreciate cardiology Hold anticoagulants Monitor hemoglobin 07/23/2021: Supportive care Monitor hemoglobin Treat pain 07/24/2021: Transfer to fourth floor PT and OT Very unmotivated which is chronic Critical Care Critically Ill Patient CASEY CARRILLO DO Jul 25, 2021 06:05
[2021-07-25 06:13] LABS: BASOPHILS % (AUTO) 0 % (0-10); EOSINOPHILS # (AUTO) 0.6 10^3/uL (0.0-0.3); EOSINOPHILS % (AUTO) 7 % (0-10); HEMATOCRIT 28 % (35-52); HEMOGLOBIN 8.8 g/dL (11.5-16.0); LYMPHOCYTES # (AUTO) 1.3 10^3/uL (1.0-4.0); LYMPHOCYTES % (AUTO) 17 % (12-44); MEAN CORPUSCULAR HEMOGLOBIN 31 pg (25-34); MEAN CORPUSCULAR HGB CONC 32 g/dL (32-36); MEAN CORPUSCULAR VOLUME 97 fL (80-99); MEAN PLATELET VOLUME 10.9 fL (9.0-12.2); MONOCYTES # (AUTO) 0.8 10^3/uL (0.0-1.0); MONOCYTES % (AUTO) 10 % (0-12); NEUTROPHILS # (AUTO) 5.2 10^3/uL (1.8-7.8); NEUTROPHILS % (AUTO) 65 % (42-75); PLATELET COUNT 218 10^3/uL (130-400)
[2021-07-25 06:28] LABS: ALBUMIN 2.8 GM/DL (3.2-4.5)
[2021-07-25 06:29] LABS: POTASSIUM 4.2 MMOL/L (3.6-5.0)
[2021-07-25 06:30] LABS: CALCIUM 8.5 MG/DL (8.5-10.1)
[2021-07-25 06:33] LABS: BILIRUBIN,TOTAL 1.1 MG/DL (0.1-1.0)
[2021-07-25 06:35] LABS: CREATININE SERUM 1.04 MG/DL (0.60-1.30)
--- NOTE | 2021-07-25 08:56 | Cardiology Progress Note ---
Subjective Date Seen by Provider: Jul 25, 2021 Time Seen by Provider: 08:54 Subjective/Events-last exam Patient was seen at bedside, sitting comfortably, denied any chest pain, abdominal wall pain is improving Review of Systems General: No Chills, No Night Sweats, No Fatigue, No Malaise, No Appetite, No Other HEENT: No Head Aches, No Visual Changes, No Eye Pain, No Ear Pain, No Dysphasia, No Sinus Congestion, No Post Nasal Drip, No Sore Throat, No Other Pulmonary: No Dyspnea, No Cough, No Pleuritic Chest Pain, No Other Cardiovascular: No: Chest Pain, Palpitations, Orthopnea, Paroxysmal Noc. Dyspnea, Edema, Lt Headedness, Other Focused Exam Time of Focused Exam: 09:02 Objective-Cardiology Exam Last Set of Vital Signs Vital Signs 07/24/21 07/25/21 06:00 04:00 Temp 36.4 Pulse 83 Resp 18 B/P (MAP) 104/57 Pulse Ox 94 O2 Delivery Room Air O2 Flow Rate 2.00 I&O Intake and Output 07/25/21 00:00 Intake Total 1410 ml Output Total 3750 ml Balance -2340 ml Intake Oral 1410 ml Output Urine Total 3750 ml General: Alert, Oriented X3, Cooperative, No Acute Distress, Other (Morbidly obese) HEENT: Atraumatic, PERRLA, EOMI, Mucous Memb Moist/March Arb Neck: Supple, No LAD Lungs: Clear to Auscultation Heart: Regular Rate, Normal S1, Normal S2 Abdomen: Normal Bowel Sounds, Other (Right flank tenderness, mild bruising on the right lower quadrant) Extremities: No Clubbing, No Cyanosis, Normal Pulses, Other (1+ pitting edmea BLE. ) Skin: No Rashes, No Significant Lesion Neuro: Normal Speech, Sensation Intact, Cranial Nerves 3-12 NL Psych/Mental Status: Mental Status NL, Mood NL Results Lab Laboratory Tests 07/25/21 05:35 A/P-Cardiology Admission Diagnosis Congestive heart failure, acute on chronic left ventricular systolic dysfunction, ischemic cardiomyopathy Coronary artery disease Atrial fibrillation Acute renal failure Assessment/Plan Congestive heart failure, acute left ventricular systolic dysfunction ischemic in nature, ejection fraction 30 to 35%. Unable to tolerate SUSHIL inhibitor and/or ARB due to to renal failure Paroxysmal atrial fibrillation, underwent ASHU and electrical cardioversion on July 21, 2021, currently in sinus rhythm, maintained on Toprol, Cardizem. Restart Eliquis [id number] score of 4, yearly risk of stroke without oral anticoagulation is 4.2%. Started back on Eliquis Abdominal pain, CT scan showed large hematoma 6 x 7 cm extending from the sym physis superiorly to the right costal margin, right sided effusion, nonobstructive stone in the right kidney. Probably secondary to Lovenox injection. Reporting improvement at this time. Coronary artery disease, cardiac catheterization was done on July 20, 2021 showing tortuous LAD with multiple lesions of severe stenosis at the mid and distal LAD otherwise mild coronary artery disease. Patient having large abdominal hematoma probably secondary to Lovenox injection. She will be unable to tolerate aggressive anticoagulation for stenting of the LAD. Conservative management is recommended at this time. Hypertension, better controlled on current medication, continue to monitor Acute on chronic renal failure, improving slowly, continue to monitor renal function closely Peripheral edema secondary to renal failure and congestive heart failure, using diuretics cautiously. Morbid obesity. BMI 52, discussed weight loss Okay for discharge from cardiology standpoint, follow-up as an outpatient in 1 week and we will plan for cardiac catheterization and stenting of the LAD once the hematoma is fully resolved BRENDA SAMSON MD Jul 25, 2021 08:56
[2021-07-25] MEDS ORDERED: APIXABAN 5 MG (ELIQUIS) TABLET PO SCH (09:00)
[2021-07-25] MEDS: dilTIAZem120 MG (CARDIZEM CD) CAP PO SCH (09:47)
[2021-07-25] MEDS: ASPIRIN E.C. 81 MG (ECOTRIN) TAB PO SCH (09:48)
[2021-07-25] MEDS: DIGOXIN 0.125 MG (LANOXIN) TAB PO SCH (09:48)
[2021-07-25] MEDS: meTOprolol TARTRATE 50 MG (LOPRESSOR) TAB PO SCH (09:48)
[2021-07-25] MEDS: FUROSEMIDE 40 MG (LASIX) TAB PO SCH (09:48)
[2021-07-25] MEDS: FERROUS SULF 325 MG (IRON) TAB PO SCH (09:48)
--- NOTE | 2021-07-25 10:13 | Physical Therapy Evaluation ---
PT Evaluation-General Medical Diagnosis Admission Date Jul 22, 2021 at 11:02 Medical Diagnosis: A-fib with RVR/CHF Onset Date: Jul 22, 2021 Therapy Diagnosis Therapy Diagnosis: debility/weakness Height/Weight Height (Feet): 5 Height (Inches): 4.00 Weight (Pounds): 278 Precautions Precautions/Isolations: Fall Prevention, Standard Precautions Referral Physician: Jalen Reason for Referral: Evaluation/Treatment Medical History Pertinent Medical History: Heart Failure, HTN, Renal Insufficiency Current History ER secondary to SOB and edema Reviewed History: Yes Social History Home: Single Level Current Living Status: Alone Entry Into Home: Ramp Prior Prior Level of Function SCALE: Activities may be completed with or without assistive devices. 9-Ladcfeyqiz-mqxkylc completes the activity by him/herself with no assistance from a helper. 5-Set-up or Clean-up Assistance-helper sets up or cleans up; patient completes activity. [place] assists only prior to or following the activity. 4-Supervision or Touching Assistance-helper provides verbal cues and/or touching/steadying and/or contact guard assistance as patient completes activity. Assistance may be provided throughout the activity or intermittently. 3-Partial/Moderate Assistance-helper does LESS THAN HALF the effort. [place] li fts, holds or supports trunk or limbs, but provides less than half the effort. 2-Substantial/Maximal Assistance-helper does MORE THAN HALF the effort. [place] lifts or holds trunk or limbs and provides more than half the effort. 4-Jxelpdsxs-eabsdi does ALL the effort. Patient does none of the effort to complete the activity. Or, the assistance of 2 or more helpers is required for the patient to complete the activity. If activity was not attempted, code reason: 7-Patient Refused. 9-Not Applicable-not attempted and the patient did not perform the activity before the current illness, exacerbation or injury. 10-Not Attempted due to Environmental Limitations-(lack of equipment, weather restraints, etc.). 88-Not Attempted due to Medical Conditions or Safety Concerns. Bed Mobility: 6 Transfers (B,C,W/C): 6 Gait: 6 Indoor Mobility (Ambulation): Independent Stairs: Independent Prior Devices Use: Walker PT Evaluation-Current Subjective Patient agrees to PT. Objective Patient Orientation: Normal For Age ROM/Strength ROM Lower Extremities bilateral LE WFL Strength Lower Extremities 4-/5 grossly bilateral LE Integumentary/Posture Bowel Incontinence: No Bladder Incontinence: No Posture WFL Neuromuscular (Tone, Coordination, Reflexes) grossly intact Sensory Vision: Wears Glasses Hearing: Functional Sensation Right Lower Extremit: Impaired Sensation Left Lower Extremity: Impaired Transfers Lying to Sitting/Side of Bed(Q: 5 Sit to Stand (QC): 5 Chair/Rqi-sa-Vxcqf Xfer(QC): 5 Toilet Transfer (QC): 5 Gait Does the Patient Walk?: Yes Mode of Locomotion: Walk Anticipated Mode of Locomotion: Walk Walk 10 feet (QC): 5 Walk 50 ft with 2 Turns(QC): 5 Walk 150 ft (QC): 7 Distance: 50' Gait Assistive Device: FWW Comments/Gait Description slow, steady, functional gait sequence Balance Sitting Static: Normal Sitting Dynamic: Normal Standing Static: Normal Standing Dynamic: Normal Assessment/Needs 65 y.o. female, is currently at [facility] [place] independent to independent [facility] with gross motor skills. Patient reports she is going home on this date. Rehab Potential: Fair PT Plan Treatment/Plan Treatment Plan: Discontinue PT Treatment Duration: Jul 25, 2021 Frequency: 1 time per week Estimated Hrs Per Day: .25 hour per day Patient and/or Family Agrees t: Yes Discharge Recommendations Therapy Discharge Recommendati: Home & Family Time/GCodes Time In: 842 Time Out: 900 Total Billed Treatment Time: 18 Total Billed Treatment 1 visit EVMod 18 min RONNIE TOWNSEND PT Jul 25, 2021 10:13
--- NOTE | 2021-07-25 10:51 | Pulmonary Progress Note ---
Subjective Date Seen by a Provider: Jul 25, 2021 Time Seen by a Provider: 10:47 Subjective/Events-last exam Feeling better, SpO2 94% on RA, breathing is good, no cough, no chest pain, no hemoptysis. can get out of bed with SOB Pt has son who can help Sepsis Event Evaluation Height, Weight, BMI Height: 5'4.00" Weight: 278lbs. oz. 126.897240yj; 52.19 BMI Method:Stated Focused Exam Time of Focused Exam: 09:02 Exam Exam Patient acknowledged, consented, and participated in this virtual visit which was conducted using real time audio/video Vital Signs Date Time Temp Pulse Resp B/P (MAP) Pulse Ox O2 Delivery O2 Flow Rate FiO2 07/25/21 06:11 90 07/25/21 04:00 36.4 83 18 104/57 94 Room Air 07/25/21 03:59 Room Air 07/25/21 01:00 90 07/25/21 00:00 Room Air 07/24/21 23:30 36.8 90 18 130/63 94 Room Air 07/24/21 20:00 Room Air 07/24/21 19:27 37.0 96 20 111/67 94 Room Air 07/24/21 19:00 103 07/24/21 14:27 36.0 66 18 123/68 95 Room Air 07/24/21 12:59 67 07/24/21 12:00 Room Air 07/24/21 12:00 36.3 07/24/21 11:00 67 18 140/60 96 Room Air I & O 07/25/21 06:59 Intake Total 1460 ml Output Total 3450 ml Balance -1990 ml Height & Weight Height: 5'4.00" Weight: 278lbs. oz. 126.617638ep; 52.19 BMI Method:Stated General Appearance: No Apparent Distress, WD/WN, Chronically ill HEENT: PERRL/EOMI, Moist Mucous Membranes Neck: Non Tender, Supple Respiratory: Lungs Clear, Normal Breath Sounds, Decreased Breath Sounds Cardiovascular: Regular Rate, Rhythm, Bradycardia Capillary Refill: Less Than 3 Seconds Peripheral Pulses: 2+ Dorsalis Pedis (R), 2+ Left Dors-Pedis (L), 2+ Radial Pulses (R), 2+ Radial Pulses (L) Gastrointestinal: normal bowel sounds, non tender, soft, tenderness Extremity: Normal Capillary Refill, No Calf Tenderness, Pedal Edema Neurologic/Psychiatric: Alert, Oriented x3 Skin: Normal Color, Warm/Dry Lymphatic: No Adenopathy Results Lab Laboratory Tests 07/24/21 04:15 07/25/21 05:35 Assessment/Plan Assessment/Plan From my point of view can be discharged since feels well and has good SpO2 on RA and appears to be able to do ADL. As OP would send to pulmonary clinic and would order home sleep study as I suspect has RAAD Also advised her to get flu vaccine. WIll speak to hospitalist Time spent with patient (mins): 20 BRIDGET NUNN MD Jul 25, 2021 10:51
[2021-07-25] MEDS ORDERED: NITR0.4T42 SL (11:54)
[2021-07-25] MEDS ORDERED: TRM50T PO (11:54)
[2021-07-25] MEDS ORDERED: APIX5TAB PO (11:54)
[2021-07-25] MEDS ORDERED: METO50TA15 PO (11:54)
[2021-07-25] MEDS ORDERED: DILT-27 PO (11:54)
[2021-07-25] MEDS ORDERED: DIGO125T18 PO (11:54)
[2021-07-25] MEDS ORDERED: ASPI-1238 PO (11:54)
--- NOTE | 2021-07-25 11:55 | Discharge Summary ---
Discharge Summary Hospital Course Was the Problem List Reviewed?: Yes Problems/Dx: (1) Congestive heart failure Status: Acute Qualifiers: (2) Acute exacerbation of congestive heart failure Status: Acute Qualifiers: Qualified Codes: I50.9 - Heart failure, unspecified (3) Atrial fibrillation with rapid ventricular response Status: Acute (4) Acute renal insufficiency Status: Chronic (5) CKD (chronic kidney disease) Status: Chronic (6) Hypertension Status: Chronic Qualifiers: Qualified Codes: I10 - Essential (primary) hypertension (7) DVT prophylaxis Status: Acute (8) Metabolic acidosis Status: Acute Hospital Course Date of Admission: Jul 22, 2021 at 11:02 Admission Diagnosis : Family Physician/Provider: [place] Date of Discharge: 07/25/21 Discharge Diagnosis: Atrial fibrillation with rapid ventricular response, rectus sheath hematoma managed nonsurgically and without acute blood loss Obvious severe sleep apnea reluctant to obtain treatment Hospital Course: Patient had an uneventful hospital course after she was admitted for atrial fibrillation with rapid ventricular response but experienced a rectus sheath hematoma requiring surgical consultation but that was managed conservatively. Anticoagulation was held for 2 days no evidence of any expansion of the hematoma so she was placed back on Eliquis and discharge with pulmonology follow-up for severe sleep apnea although she was reluctant to proceed with treatment for that in addition she will see Dr. Cantu for cardiac catheterization with intervention soon since that was delayed due to rectus sheath hematoma. Labs and Pending Lab Test: Laboratory Tests 07/25/21 05:35: White Blood Count 8.0, Red Blood Count 2.87L, Hemoglobin 8.8L, Hematocrit 28L, Mean Corpuscular Volume 97, Mean Corpuscular Hemoglobin 31, Mean Corpuscular Hemoglobin Concent 32, Red Cell Distribution Width 13.2, Platelet Count 218, Mean Platelet Volume 10.9, Immature Granulocyte % (Auto) 0, Neutrophils (%) (Auto) 65, Lymphocytes (%) (Auto) 17, Monocytes (%) (Auto) 10, Eosinophils (%) (Auto) 7, Basophils (%) (Auto) 0, Neutrophils # (Auto) 5.2, Lymphocytes # (Auto) 1.3, Monocytes # (Auto) 0.8, Eosinophils # (Auto) 0.6H, Basophils # (Auto) 0.0, Immature Granulocyte # (Auto) 0.0, Sodium Level 139, Potassium Level 4.2, Chloride Level 101, Carbon Dioxide Level 25, Anion Gap 13, Blood Urea Nitrogen 16, Creatinine 1.04, Estimat Glomerular Filtration Rate 53, BUN/Creatinine Ratio 15, Glucose Level 88, Calcium Level 8.5, Corrected Calcium 9.5, Total Bilirubin 1.1H, Aspartate Amino Transf (AST/SGOT) 25, Alanine Aminotransferase (ALT/SGPT) 18, Alkaline Phosphatase 72, Total Protein 5.0L, Albumin 2.8L Microbiology 07/18/21 MRSA Screen - Final, Complete MRSA not isolated Home Meds Active Aspirin EC (Aspirin) 81 Mg Tablet.dr 81 Mg PO DAILY Diltiazem 24Hr ER (Diltiazem HCl) 120 Mg Cap.er.24h 120 Mg PO DAILY Metoprolol Tartrate 50 Mg Tablet 50 Mg PO BID Nitroglycerin 0.4 Mg Tab.subl 0.4 Mg SL UD PRN Digox (Digoxin) 125 Mcg Tablet 0.125 Mg PO DAILY Eliquis (Apixaban) 5 Mg Tablet 5 Mg PO BID Reported Lisinopril 20 Mg Tablet 20 Mg PO DAILY Iron (Ferrous Sulfate) 325 Mg Tablet 325 Mg PO DAILY Centrum Silver Women Tablet (Multivits-Min/Iron/FA/Lutein) 1 Each Tablet 1 Each PO DAILY Acetaminophen 500 Mg Tablet 1,000 Mg PO DAILY TAKES 2 (500MG) TABS Potassium Chloride 10 Meq Tab.er.prt 10 Meq PO DAILY Amlodipine Besylate 10 Mg Tablet 10 Mg PO DAILY Furosemide 20 Mg Tablet 20 Mg PO DAILY Assessment/Pt Instructions [facility] in 1 week Pulmonology clinic appointment for sleep apnea Discharge Planning: <30 minutes discharge planning Discharge Instructions Discharge Diet: No Restrictions Activity as Tolerated: Yes Discharge Physical Examination Vital Signs Vital Signs Date Time Temp Pulse Resp B/P (MAP) Pulse Ox O2 Delivery O2 Flow Rate FiO2 07/25/21 06:11 90 07/25/21 04:00 36.4 18 104/57 94 Room Air 07/24/21 06:00 2.00 General Appearance: No Apparent Distress, WD/WN, Chronically ill Allergies: Coded Allergies: No Known Drug Allergies (Unverified , 12/23/17) Discharge Summary Date of Admission Jul 22, 2021 at 11:02 Date of Discharge Discharge Date: Jul 25, 2021 Discharge Diagnosis Assessment: Atrial fibrillation with rapid ventricular response CAD with need for intervention but on hold Acute rectus sheath hematoma Abdominal pain due to hematoma Ischemic cardiomyopathy ejection fraction 35% Obesity Chronic kidney disease Plan: Appreciate cardiology Hold anticoagulants Monitor hemoglobin 07/23/2021: Supportive care Monitor hemoglobin Treat pain 07/24/2021: Transfer to fourth floor PT and OT Very unmotivated which is chronic CASEY CARRILLO DO Jul 25, 2021 11:55
--- NOTE | 2021-07-25 12:17 | Occupational Therapy Eval ---
OT Evaluation-General/PLF Medical Diagnosis Admission Date Jul 22, 2021 at 11:02 Medical Diagnosis: A-fib with RVR/CHF Onset Date: Jul 22, 2021 Therapy Diagnosis Therapy Diagnosis: impaired endurance, insight, adls Height/Weight Height (Feet): 5 Height (Inches): 4.00 Weight (Pounds): 278 Precautions Precautions/Isolations: Fall Prevention, Standard Precautions Referral Physician: Jalen Referral Reason: Evaluation/Treatment Medical History Pertinent Medical History: Heart Failure, HTN, Renal Insufficiency Current History Pt reports she arrived to ER after being unable to get out of her tub due to weakness and increased swelling in her legs. She states living alone in a single story home. Supportive family nearby. She was mod I for adls. Her daughter in law assists with cleaning and her son/dtr in law do all of the grocery shopping. She was using a FWW at baseline. She has a garden tub (no shower). She does not drive. Reviewed History: Yes Social History Home: Single Level Current Living Status: Alone Entry Into Home: Ramp ADL-Prior Level of Function SCALE: Activities may be completed with or without assistive devices. 0-Brkjwznwvz-bzzimry completes the activity by him/herself with no assistance from a helper. 5-Set-up or Clean-up Assistance-helper sets up or cleans up; patient completes activity. [place] assists only prior to or following the activity. 4-Supervision or Touching Assistance-helper provides verbal cues and/or touching/steadying and/or contact guard assistance as patient completes activity. Assistance may be provided throughout the activity or intermittently. 3-Partial/Moderate Assistance-helper does LESS THAN HALF the effort. [place] lifts, holds or supports trunk or limbs, but provides less than half the effort. 2-Substantial/Maximal Assistance-helper does MORE THAN HALF the effort. [place] lifts or holds trunk or limbs and provides more than half the effort. 0-Zoafmgysv-xlswuv does ALL the effort. Patient does none of the effort to complete the activity. Or, the assistance of 2 or more helpers is required for the patient to complete the activity. If activity was not attempted, code reason: 7-Patient Refused. 9-Not Applicable-not attempted and the patient did not perform the activity before the current illness, exacerbation or injury. 10-Not Attempted due to Environmental Limitations-(lack of equipment, weather restraints, etc.). 88-Not Attempted due to Medical Conditions or Safety Concerns. Self Care: Independent Functional Cognition: Independent DME/Equipment: Tub, Toilet/[address] Self: No OT Current Status Subjective Pt reports possibility of d/c later today. Appearance Pt sitting in chair, all needs within reach at of eval. Mental Status/Objective Patient Orientation: Person, Place, Time, Situation Attachments: Barron Catheter, IV, Telemetry Current Glasses/Contacts: Yes Hearing Aids: No Dentures/Partials: No Hand Dominance: Right Upper Extremity ROM Pt reports old R shoulder injury, but still able to perform full ROM. Upper Extremity Strength Not formally tested, appears at least 3+/5 throughout. ADL-Treatment Eating (QC): 6 Oral Hygiene (QC): 6 On/Off Footwear (QC): 4 Pt verbalizes being unable to don/doff socks while sitting in chair and will lift leg onto side of bed when at home. With encouragement, she was able to transfer to bed to demonstrate ability with SBA/Sup. No unsteadiness when standing with FWW. Discussion on bathroom set up and improving safety post d/c. Pt verbalizes that she will be unable to install grab bars or hand held shower as family has already looked into this and it is not an option at this time. Pt reports that she will instead perform sponge baths sitting at the sink. Educati on provided on energy conservation and compensatory strategies pt could use post d/c. Education OT Patient Education: Correct positioning, Energy conservation, Modified ADL techniques, Progress toward Goal/Update tx plan, Purpose of tx/functional activities, Safety issues, Use of adapted equipment Teaching Recipient: Patient Teaching Methods: Demonstration, Discussion Response to Teaching: Verbalize Understanding, Return Demonstration OT Speed Belt Sander Goals Speed Belt Sander Goals Time Frame: Jul 30, 2021 Oral Hygiene (QC): 5 Toileting Hygiene (QC): 5 Shower/Bathe Self (QC): 4 Lower Body Dressing (QC): 5 On/Off Footwear (QC): 5 1=Demonstrate adherence to instructed precautions during ADL tasks. 2=Patient will verbalize/demonstrate understanding of assistive devices/sofy fications for ADL. 3=Patient will improve strength/tolerance for activity to enable patient to perform ADL's. OT Education/Plan Problem List/Assessment Assessment: Decreased Activ Tolerance, Decreased Safety Aware, Decreased UE Strength, Impaired I ADL's Discharge Recommendations Plan/Recommendations: Continue POC Target Placement Home vs home with home health pending progress Treatment Plan/Plan of Care Treatment,Training & Education: Yes Patient would benefit from OT for education, treatment and training to promote independence in ADL's, mobility, safety and/or upper extremity function for ADL's. Plan of Care: ADL Retraining, Functional Mobility, UE Funct Exercise/Act Treatment Duration: Jul 30, 2021 Frequency: 5 times per week Agreement: Yes Rehab Potential: Fair Time/GCodes Start Time: 11:35 Stop Time: 11:47 Total Time Billed (hr/min): 12 Billed Treatment Time 1 visit, Allie Johnson OT Jul 25, 2021 12:17
--- NOTE | 2021-07-25 12:54 | Progress Note ---
ERIC ADAMS 07/25/21 1253: Progress Note Nicolle Baird is a 65yo female with a past medical history of CKD, morbid obesity, HTN and CHF who was admitted to [facility] 07/18 for atrial fibrillation, CAD and congestive heart failure. Prior to admission, patient had been experiencing pedal edema and weight gain for months. On admission, she was found to be in Afib with RVR. BNP was 1107. Cardiology was consulted and patient was placed on a Cardizem drip and IV lasix. Echocardiogram performed 07/19 demonstrated reduced ejection fraction of 30-35%. Patient was started on metoprolol and digoxin. On 07/20 underwent heart catheterization demonstrating tortuous LAD with multiple lesions of severe stenosis at the mid and distal LAD. Because the patient was currently unable to tolerate blood thinners due to a hematoma (discussed below), her CAD was managed conservatively without stent placement. On 07/21 patient underwent a transesophageal echo with cardioversion, which successfully conve rted her into sinus rhythm. In addition, patient was managed for acute on chronic kidney failure and rectus sheath hematoma. On admission patient's creatinine was 2.29 in the setting of chronic kidney disease. This was managed by IVF. By 07/22 her creatinine was below 1.4. Patient was also treated for a rectus sheath hematoma noted on CT abdomen 07/19. This was likely due to a lovenox injection. Anticoagulants were held. By 07/25 the hematoma was improving. By 07/25 patient was medically stable and safe for discharge. Her eliquis will be resumed. All questions and concerns were answered. HEATHER CARRILLO DO 07/26/21 0530: Supervisory-Addendum Brief Verification & Attestation Participated in pt care: history, MDM, physical Personally performed: exam, history, MDM, supervision of care Care discussed with: Medical Student Procedures: n/a Results interpretation: Verified all documentation Verification and Attestation of Medical Student E/M Service A medical student performed and documented this service in my presence. I reviewed and verified all information documented by the medical student and made modifications to such information, when appropriate. I personally performed the physical exam and medical decision making. Heather Carrillo Jul 26, 2021,05:30 ERIC ADAMS Jul 25, 2021 12:53 HEATHER CARRILLO DO Jul 26, 2021 05:30
== END 2021-07-25 16:20 | disposition home or self-care (01) | DRG 286 ==
LOC: EDUNIT# 18:37 → ER 18:40 → ICU 20:05 → OBSVTOIN 07-22 11:02 → ICU 07-22 15:12 → 4TH 07-24 14:52
PROVIDERS: ADMIT Family Medicine; ATTEND Internal Medicine
PROC: 4A023N7 Measurement of Cardiac Sampling and Pressure, Left Heart, Percutaneous Approach (ICD-10-PCS; 2021-07-20)
PROC: B2111ZZ Fluoroscopy of Multiple Coronary Arteries using Low Osmolar Contrast (ICD-10-PCS; 2021-07-20)
PROC: 5A2204Z Restoration of Cardiac Rhythm, Single (ICD-10-PCS; principal; 2021-07-21)
DX: I13.0 Hypertensive heart and chronic kidney disease with heart failure and stage 1 through stage 4 chronic kidney disease, or unspecified chronic kidney disease (principal); I50.23 Acute on chronic systolic (congestive) heart failure; N17.9 Acute kidney failure, unspecified; Z68.43 Body mass index [BMI] 50.0-59.9, adult; E87.2 Acidosis; D68.318 Other hemorrhagic disorder due to intrinsic circulating anticoagulants, antibodies, or inhibitors; I48.0 Paroxysmal atrial fibrillation; N18.9 Chronic kidney disease, unspecified; E66.01 Morbid (severe) obesity due to excess calories; I25.10 Atherosclerotic heart disease of native coronary artery without angina pectoris; T45.515A Adverse effect of anticoagulants, initial encounter; E87.5 Hyperkalemia; D50.0 Iron deficiency anemia secondary to blood loss (chronic)
CPT/HCPCS: 36415; 71045; 74018; 74176; 80053; 80061; 80162; 83735; 83880; 84100; 84484; 85025; 86141; 87081; 93005; 93041; 93312; 93320; 93325; G0378